=== PATIENT | female | born 1970 | race Caucasian/White ===

== ENCOUNTER 2020-03-11 09:04 | Outpatient (REF) | payer OTHER, SELFPAY | END 2020-03-11 09:05 | disposition home or self-care (01) | LOC: HO.WFDLDS 09:04 | PROVIDERS: Visit Provider Family Medicine | DX: Z13.89 Encounter for screening for other disorder (principal) ==

== ENCOUNTER 2020-03-25 11:16 | Outpatient (REF) | payer OTHER, SELFPAY ==
[2020-03-25 12:27] LABS: Alanine Aminotransferase 187 U/L (0-31); Albumin Level 4.3 g/dL (3.5-5.0); Alkaline Phosphatase 105 U/L (39-117); Aspartate Amino Transferase 94 U/L (5-31); Bilirubin Total 0.6 mg/dL (0.0-1.0); Blood Urea Nitrogen 12 mg/dL (9-16); Calcium 9.2 mg/dL (8.4-10.2); Cholesterol 244 mg/dL; Estimated Glomerular Filt Rate > 60; Glucose Fasting 96 mg/dL (60-99); HDL Cholesterol 81 mg/dL; LDL Cholesterol Calculated 150 mg/dl; Total Protein 6.6 g/dL (6.5-8.0); Triglycerides 69 mg/dL
[2020-03-25 12:36] LABS: Anion Gap 11 (12-20); Carbon Dioxide 29 mmol/L (22-29); Chloride 103 mmol/L (96-108); Potassium 4.9 mmol/l (3.3-5.1); Sodium 138 mmol/L (135-145)
[2020-03-28 19:13] LABS: Homocysteine 8.9 umol/L (<10.4)
== END 2020-03-25 11:17 | disposition home or self-care (01) ==
LOC: HO.LAB 11:16
PROVIDERS: PCP Family Medicine; Visit Provider Family Medicine
DX: F41.1 Generalized anxiety disorder (principal); I10 Essential (primary) hypertension; Z00.00 Encounter for general adult medical examination without abnormal findings
CPT/HCPCS: 80053; 80061; 83090; 84443

== ENCOUNTER 2020-03-31 14:08 | Outpatient (REF) | payer OTHER, SELFPAY ==
[2020-03-31 14:49] LABS: Microalbumin Urine < 5.0 mg/L
== END 2020-03-31 14:09 | disposition home or self-care (01) ==
LOC: HO.LNP 14:08
PROVIDERS: Visit Provider Family Medicine
DX: I10 Essential (primary) hypertension (principal)
CPT/HCPCS: 82043

== ENCOUNTER 2020-05-24 09:18 | Outpatient (REF) | payer OTHER, SELFPAY ==
--- NOTE | 2020-05-24 09:34 | US_ITS ---
EXAMINATION: US ABDOMEN WITH LIVER ELASTOGRAPHY CLINICAL INFORMATION: Elevation of liver transaminase. COMPARISON: None TECHNIQUE: Limited imaging through the right upper quadrant was performed. FINDINGS: The pancreas is homogeneous in echotexture and is normal size and echo pattern. The liver is normal size, contour and echogenicity. There are multiple hyperechoic lesions consistent with hemangiomas. 1. Left lesion measures 0.93 x 0.90 by x 1.0 cm. 2. Left hepatic lesion measures 0.40 x 0.34 x 0.47 cm. 3. Left hepatic lobe lesion measures 2.2 x 1.7 x 1.9 cm. 4. A right hepatic lobe lesion measures 0.75 x 0.55 x 0.60 cm. No intrahepatic ductal dilatation seen. On Elastography Median value is 3.36 m/s. IQR/median measures 0.57. CBD measures 0.41 cm and is borderline normal. There are multiple echogenic gallstones without wall thickening or pericholecystic fluid collection. Gallbladder wall thickness is 0.20 cm. The right kidney measures 10.0 cm. There is normal cortical thickness. No echogenic stones, cysts, or hydronephrosis. US/US abdomen douglass w elastography IMPRESSION: Multiple hepatic hemangiomas as described above. No intrahepatic ductal dilatation.
[2020-05-24 11:25] LABS: Alanine Aminotransferase 31 U/L (0-31); Albumin Level 4.3 g/dL (3.5-5.0); Alkaline Phosphatase 69 U/L (39-117); Anion Gap 11 (12-20); Aspartate Amino Transferase 24 U/L (5-31); Bilirubin Total 0.5 mg/dL (0.0-1.0); Blood Urea Nitrogen 15 mg/dL (9-16); Calcium 9.4 mg/dL (8.4-10.2); Carbon Dioxide 29 mmol/L (22-29); Chloride 106 mmol/L (96-108); Estimated Glomerular Filt Rate > 60; Glucose Random 97 mg/dL (60-115); Potassium 5.2 mmol/l (3.3-5.1); Sodium 141 mmol/L (135-145); Total Protein 6.6 g/dL (6.5-8.0)
== END 2020-05-24 09:19 | disposition home or self-care (01) ==
LOC: HO.US 09:18
PROVIDERS: PCP Family Medicine; Visit Provider Family Medicine
DX: R74.01 Elevation of levels of liver transaminase levels (principal)
CPT/HCPCS: 36415; 76705; 76981; 80053

== ENCOUNTER 2021-04-18 10:16 | Outpatient (REF) | payer OTHER, SELFPAY ==
[2021-04-18 12:14] LABS: Alanine Aminotransferase 68 U/L (0-31); Albumin Level 4.3 g/dL (3.5-5.0); Alkaline Phosphatase 100 U/L (39-117); Anion Gap 12 (12-20); Aspartate Amino Transferase 50 U/L (5-31); Bilirubin Total 0.6 mg/dL (0.0-1.0); Blood Urea Nitrogen 11 mg/dL (9-16); Calcium 9.7 mg/dL (8.4-10.2); Carbon Dioxide 28 mmol/L (22-29); Chloride 104 mmol/L (96-108); Cholesterol 262 mg/dL; Estimated Glomerular Filt Rate > 60; Glucose Fasting 98 mg/dL (60-99); HDL Cholesterol 85 mg/dL; LDL Cholesterol Calculated 165 mg/dl; Potassium 4.7 mmol/L (3.3-5.1); Sodium 139 mmol/L (135-145); Total Protein 6.8 g/dL (6.5-8.0); Triglycerides 60 mg/dL
[2021-04-18 12:35] LABS: TSH reflex Free T4 2.22 uIU/mL (0.32-4.0)
[2021-04-20 06:26] LABS: LDL Cholesterol Direct 150 mg/dL (<100)
== END 2021-04-18 10:17 | disposition home or self-care (01) ==
LOC: HO.WFDLDS 10:16
PROVIDERS: Visit Provider Family Medicine
DX: Z00.00 Encounter for general adult medical examination without abnormal findings (principal); E78.00 Pure hypercholesterolemia, unspecified; R74.01 Elevation of levels of liver transaminase levels
CPT/HCPCS: 36415; 80053; 80061; 83721; 84443

== ENCOUNTER 2021-07-31 12:31 | Outpatient (REF) | payer OTHER, SELFPAY ==
[2021-07-31 14:29] LABS: Alanine Aminotransferase 41 U/L (0-31); Albumin Level 4.2 g/dL (3.5-5.0); Alkaline Phosphatase 86 U/L (39-117); Anion Gap 12 (12-20); Aspartate Amino Transferase 26 U/L (5-31); Bilirubin Direct < 0.2 mg/dL (0.0-0.5); Bilirubin Total 0.5 mg/dL (0.0-1.0); Blood Urea Nitrogen 14 mg/dL (9-16); Carbon Dioxide 29 mmol/L (22-29); Chloride 101 mmol/L (96-108); Cholesterol 241 mg/dL; Estimated Glomerular Filt Rate > 60; Glucose Random 87 mg/dL (60-115); HDL Cholesterol 80 mg/dL; LDL Cholesterol Calculated 146 mg/dl; Potassium 4.9 mmol/L (3.3-5.1); Sodium 137 mmol/L (135-145); Total Protein 6.6 g/dL (6.5-8.0); Triglycerides 76 mg/dL
[2021-07-31 14:36] LABS: TSH reflex Free T4 2.87 uIU/mL (0.32-4.0)
== END 2021-07-31 12:32 | disposition home or self-care (01) ==
LOC: HO.LAB 12:31
PROVIDERS: PCP Family Medicine; Visit Provider Family Medicine
DX: Z00.00 Encounter for general adult medical examination without abnormal findings (principal); I10 Essential (primary) hypertension; D18.03 Hemangioma of intra-abdominal structures; R74.8 Abnormal levels of other serum enzymes
CPT/HCPCS: 36415; 80053; 80061; 82248; 84443

== ENCOUNTER 2021-08-15 11:05 | Outpatient (REF) | payer OTHER, SELFPAY ==
[2021-08-15 13:40] LABS: Rheumatoid Factor < 15.0 IU/mL (<15.0)
[2021-08-15 14:16] LABS: Erythrocyte Sedimentation Rate 5 MM/HR (0-20)
[2021-08-18 11:32] LABS: CRP High Sensitivity 1.3 mg/L
[2021-08-20 11:53] LABS: ANA Titer 2 1:40 titer; Anti Nuclear Antibody Pattern Nuclear, Nucleolar; Anti Nuclear Antibody Screen POSITIVE (NEGATIVE)
== END 2021-08-15 11:06 | disposition home or self-care (01) ==
LOC: HO.WFDLDS 11:05
PROVIDERS: Visit Provider Family Medicine
DX: M25.50 Pain in unspecified joint (principal)
CPT/HCPCS: 36415; 85652; 86038; 86039; 86141; 86431

== ENCOUNTER 2022-06-05 11:05 | Outpatient (REF) | payer OTHER, SELFPAY ==
[2022-06-05 14:23] LABS: Basophils Absolute Auto 0.1 X10*3/uL (0.0-0.2); Basophils Percent Auto 1.1 % (0-2); Eosinophils Absolute Auto 0.3 X10*3/uL (0.0-0.4); Eosinophils Percent Auto 5.9 % (0-4); Hematocrit 41.1 % (37.0-47.0); Hemoglobin 13.7 g/dl (12.0-16.0); Imm Gran Abs Auto 0.01 X10*3/uL (0.00-0.03); Imm Gran Pct Auto 0.2 % (0.0-0.4); Lymphocytes Absolute Auto 1.7 X10*3/uL (1.2-4.9); Lymphocytes Percent Auto 32.3 % (20-40); MANUAL DIFF FLAG NO; Mean Corpuscular HGB Conc 33.3 g/dl (31.0-35.0); Mean Corpuscular Volume 89.9 fL (80.0-98.0); Mean Platelet Volume 11.6 fL (9.4-12.3); Monocytes Absolute Auto 0.4 X10*3/uL (0.1-1.2); Monocytes Percent Auto 6.6 % (2-11); Neutrophils Absolute Auto 2.9 x10*3/uL (2.0-8.3); Neutrophils Percent Auto 53.9 % (45-73); Platelet Count 288 X10*3/uL (160-400); Red Blood Count 4.57 X10*6/uL (4.20-5.50); Red Cell Distribution Width 12.3 % (11.0-16.0); White Blood Count 5.3 X10*3/uL (4.8-10.8)
[2022-06-05 15:12] LABS: Alanine Aminotransferase 115 U/L (0-31); Albumin Level 4.4 g/dL (3.5-5.0); Alkaline Phosphatase 130 U/L (39-117); Anion Gap 14 (12-20); Aspartate Amino Transferase 60 U/L (5-31); Bilirubin Total 0.6 mg/dL (0.0-1.0); Blood Urea Nitrogen 12 mg/dL (9-16); Calcium 9.8 mg/dL (8.4-10.2); Carbon Dioxide 28 mmol/L (22-29); Chloride 105 mmol/L (96-108); Cholesterol 244 mg/dL; Estimated Glomerular Filt Rate > 60; Glucose Fasting 103 mg/dL (60-99); HDL Cholesterol 79 mg/dL; LDL Cholesterol Calculated 144 mg/dl; Potassium 4.8 mmol/L (3.3-5.1); Sodium 142 mmol/L (135-145); Total Protein 6.8 g/dL (6.5-8.0); Triglycerides 106 mg/dL
[2022-06-05 15:32] LABS: TSH reflex Free T4 1.82 uIU/mL (0.32-4.0)
== END 2022-06-05 11:06 | disposition home or self-care (01) ==
LOC: HO.WFDLDS 11:05
PROVIDERS: Visit Provider Family Medicine
DX: Z00.00 Encounter for general adult medical examination without abnormal findings (principal)
CPT/HCPCS: 36415; 80053; 80061; 84443; 85025

== ENCOUNTER 2022-10-23 11:10 | Outpatient (REF) | payer OTHER, SELFPAY ==
[2022-10-23 14:36] LABS: Alanine Aminotransferase 46 U/L (0-31); Albumin Level 4.4 g/dL (3.5-5.0); Alkaline Phosphatase 105 U/L (39-117); Anion Gap 13 (12-20); Aspartate Amino Transferase 51 U/L (5-31); Bilirubin Total 0.6 mg/dL (0.0-1.0); Blood Urea Nitrogen 19 mg/dL (9-16); Calcium 10.1 mg/dL (8.4-10.2); Carbon Dioxide 28 mmol/L (22-29); Chloride 104 mmol/L (96-108); Estimated Glomerular Filt Rate > 60; Glucose Random 92 mg/dL (60-115); Potassium 4.5 mmol/L (3.3-5.1); Sodium 140 mmol/L (135-145); Total Protein 7.2 g/dL (6.5-8.0)
== END 2022-10-23 11:11 | disposition home or self-care (01) ==
LOC: HO.WFDLDS 11:10
PROVIDERS: Visit Provider Family Medicine
DX: R74.8 Abnormal levels of other serum enzymes (principal)
CPT/HCPCS: 36415; 80053

== ENCOUNTER 2023-01-30 08:10 | Outpatient (AMB) | payer OTHER, SELFPAY ==
--- NOTE | 2023-01-30 08:19 | A.OFFPC_ITS ---
Vital Signs 01/30/23 08:26 Height 5 ft 4 in BMI Reason not done Patient refused/unable BP 122/62 Blood Pressure Location Rt brachial Position Sitting Respiration 14 Pulse 63 Pulse Source Pulse Oximeter Temp 97.8 F Temp Source Temporal Artery Scan Pulse Oximetry (%) 99 Oxygen Delivery Method Room Air Intake Visit Reasons: f/u hypertension and chronic conditions Intake Note: Patient reports she is here for a follow up and share she has no concerns. 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 Accompanied by: Self / Same As Patient Allergies penicillin V Allergy (Unknown, Verified 01/30/23 08:27) Swelling difficulty breathing Sulfa (Sulfonamide Antibiotics) Allergy (Unknown, Verified 01/30/23 08:27) Rash itchininess Medication List - Last Reconciled 01/30/23 by Zia Serrano MD diclofenac sodium 1% 4 grams topical QID 30 days gabapentin 300 mg PO BID 30 days ibuprofen 600 mg (30 mL) PO Q8H 30 days lidocaine 5% 1 ea topical BID 30 days lisinopril 10 mg PO DAILY 90 days lorazepam 0.5 mg PO DAILY PRN 1 month metoprolol tartrate 25 mg PO BID 90 days naloxone 4 mg/actuation (Narcan) 4 mg intranasal Q2M PRN 30 days tramadol 2 in the am,1 in the pm, 2 in evening as needed; 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 Blood pressure today 122/62. She is on lisinopril 10mg and metoprolol 25mg b.i.d. She notes she had food poisoning last night after eating sushi. [facility] Surgical History History of arthroplasty of left shoulder Family History Other Substance use disorder Social History Housing: House Alcohol intake: never Patient Tobacco Use Status: Former Tobacco user Tobacco use type: Cigarette e-Cigarette/Vaping Use: Never Used Second Hand Smoke Exposure: No service: No Current occupational status: employed Current occupation: [employer] job titles Current occupational exposures/hazards: No Cognitive needs: No Hearing needs: No Vision needs: Yes (Glasses) Questionnaire Thrive Questionnaire Date Thrive assessed: 04/19/22 DEBORAH-7 AMB Questionnaire DEBORAH-7 Date DEBORAH - 7 assessed: 09/26/21 Source: Developed by Drs. Marcos Leyva, Shefali Storm, Carmine Contreras and colleagues, with an educational geronimo from [employer]. Review of Systems Const Denies chills, Denies fatigue, Denies fever(s), Denies headache(s) and Denies weakness ENT Denies dizziness and Denies headache(s) Card Denies chest pain, Denies lightheadedness, Denies dyspnea and Denies other (Palpitations) Resp Denies cough, Denies dyspnea, Denies wheezing and Denies other ( shortness of breath) Musc Denies numbness and Denies tingling Neuro Denies dizziness, Denies headache(s), Denies numbness, Denies tingling, Denies paresthesias and Denies weakness Psych Denies anxiety and Denies depression Endo Denies fatigue Aller/Immun Denies wheezing Physical exam (Primary Care) Vital Signs: Last Vital Signs Temp 97.8 F 01/30/23 08:26 Pulse 63 01/30/23 08:26 Resp 14 01/30/23 08:26 BP 122/62 01/30/23 08:26 Pulse Ox 99 01/30/23 08:26 Oxygen Delivery Method Room Air 01/30/23 08:26 Tobacco/Smoking Status: Tobacco use Status Tobacco use date assessed 06/18/22 01/30/23 08:21 Patient Tobacco Use Status Former Tobacco user 01/30/23 08:21 Tobacco use type Cigarette 01/30/23 08:21 e-Cigarette/Vaping Use Never Used 01/30/23 08:21 Thrive Assessment: Date of Thrive Assessment Date Thrive assessed 04/19/22 01/30/23 08:21 Const General: no acute distress and well developed Nutritional Appearance: well nourished Orientation/consciousness: patient oriented x3 HENMT Head: Yes normocephalic and Yes atraumatic Eyes General: appearance normal, both eyes and all related structures Pupils: Equal, round and reactive pupils present EOM: EOMs intact bilaterally Resp Effort & Inspection: normal respiratory effort Auscultation: clear to auscultation bilaterally Cardio Rate: regular rate Rhythm: regular rhythm Heart sounds: S1 normal heart sound present, S2 normal heart sound present, no gallops, no murmurs and no rubs Neuro General: patient oriented x3 and gait normal Cranial nerves: Yes Equal, round and reactive pupils present Psych Affect: normal affect Assessment and Plan Assessment & Plan (1) Essential hypertension: Code(s): I10 - Essential (primary) hypertension Plan: Blood pressure is controlled. Goal is Less than 140/90 Continue current medication regimen (2) Gastroenteritis: Code(s): K52.9 - Noninfective gastroenteritis and colitis, unspecified Plan: Likely gastroenteritis or possible food poisoning Advised clear liquid diet for today and then gradually advance diet as tolerated tomorrow. Avoid dairy and hard to digest foods until situation is resolved Hydrate well Orders: Orders Complete Blood Count Auto Diff Today Z00.00 - Encounter for general adult medical examination without abnormal findings Lipid Panel Today Z00.00 - Encounter for general adult medical examination without abnormal findings TSH reflex Free T4 Today Z00.00 - Encounter for general adult medical examination without abnormal findings UA and rflx microscopic Today Z00.00 - Encounter for general adult medical examination without abnormal findings Comprehensive [place]. Panel Fast Today Z00.00 - Encounter for general adult medical examination without abnormal findings Microalbumin, Random (w Creat) Today I10 - Essential (primary) hypertension Erythrocyte Sedimentation Rate Today M25.50 - Pain in unspecified joint Coding Level of Care Code Est Pt Level 3 (76823) Diagnoses Essential hypertension I10 Gastroenteritis K52.9
[2023-01-30 08:26] VITALS: BP 122/62; PULSE 63; RESP 14; TEMP 36.6; O2SAT 99
== END 2023-01-30 09:09 | disposition home or self-care (01) ==
PROVIDERS: PCP Family Medicine; Visit Provider Family Medicine
DX: I10 Essential (primary) hypertension (principal); K52.9 Noninfective gastroenteritis and colitis, unspecified
CPT/HCPCS: 99213

== ENCOUNTER 2023-06-05 13:48 | Outpatient (AMB) | payer OTHER, SELFPAY ==
[2023-06-05 13:52] VITALS: BP 121/74; PULSE 53; O2SAT 99
--- NOTE | 2023-06-05 13:52 | A.OFFPC_ITS ---
Vital Signs 06/05/23 13:52 Height 5 ft 4 in BMI Reason not done Patient refused/unable BP 121/74 Blood Pressure Location Lt brachial Pulse 53 Pulse Source Pulse Oximeter Pulse Oximetry (%) 99 Oxygen Delivery Method Room Air Intake Visit Reasons: CPE Intake Note: Patient is here for her physical. Allergies penicillin V Allergy (Unknown, Verified 06/05/23 13:55) Swelling difficulty breathing Sulfa (Sulfonamide Antibiotics) Allergy (Unknown, Verified 06/05/23 13:55) Rash itchininess Tobacco use date assessed: 06/18/22 HPI CPE HPI Details 52 y/o male presents for a CPE with f/u labs and health maintenance No recent labs to review. Blood pressure today 121/74. She is on metoprolol 25mg b.i.d, lisinopril 10mg daily. Pt reports palpitations. She notes episodes twice every 2 months. Pt reports worsening pain of her hips and would like to increase her gabapentin. 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 1. Little interest or pleasure in doing things: not at all 2. Feeling down, depressed, or hopeless: not at all 3. Trouble falling or staying asleep, or sleeping too much: not at all 4. Feeling tired or having little energy: not at all 5. Poor appetite or overeating: not at all 6. Feeling bad about yourself - or that you are a failure or have let yourself or your family down: not at all 7. Trouble concentrating on things, such as reading the newspaper or watching television: not at all 8. Moving or speaking so slowly that other people could have noticed. Or the opposite - being so fidgety or restless that you have been moving around a lot more than usual: not at all 9. Thoughts that you would be better off or of hurting yourself in some way: not at all Total score: 0 Depression Screening Interpretation: Negative Depression Screening Done: Yes Source: Developed by Drs. Marcos Leyva, Shefali Storm, Carmine Contreras and colleagues, with an educational geronimo from [employer]. Thrive Questionnaire Date Thrive assessed: 04/19/22 I am a: Patient What is your living situation today?: I have a steady place to live Within the past 12 months, did the food you bought not last and you didn't have the money to get more?: Never true Within the past 12 months, did you worry whether your food would run out before you got money to buy more?: Never true Do you have trouble paying for medicines?: No Do you have trouble getting transportation to medical appointments?: No Do you have trouble paying your heating and electricity bill?: No Do you have trouble taking care of your child, family member or friend?: No Do you have trouble with day-to-day activities such as bathing, preparing meals, shopping, managing finances, etc.?: No Are you currently unemployed and looking for a job?: No Are you interested in more education?: Yes THRIVE Score: 0 AUDIT C Alcohol Use Questionnaire (AUDIT-C) 1. How often do you have a drink containing alcohol?: Never 3. How often do you have six or more drinks on one occasion?: Never Total Score: 0 DEBORAH-7 AMB Questionnaire DEBORAH-7 Date DEBORAH - 7 assessed: 06/05/23 Feeling nervous, anxious, or on edge: 0 = Not at all Not being able to stop or control worryin = Not at all Worrying too much about different things: 0 = Not at all Trouble relaxin = Not at all Being so restless that it is hard to sit still: 0 = Not at all Becoming easily annoyed or irritable: 0 = Not at all Feeling afraid as if something awful might happen: 0 = Not at all Total DEBORAH-7 score (0-4 normal; 5-9 mild; 10-14 moderate; 15-21 severe): 0 Source: Developed by Drs. Marcos Leyva, Shefali Storm, Carmine Contreras and colleagues, with an educational geronimo from [employer]. Review of Systems Const Denies chills, Denies fatigue, Denies fever(s), Denies headache(s) and Denies weakness Eyes Denies change in vision ENT Denies dizziness, Denies headache(s), Denies hearing loss, Denies nasal congestion, Denies sinus pain, Denies sinus pressure and Denies sore throat Card Denies chest pain, Denies lightheadedness, Denies dyspnea and Denies other (palpitations) Resp Denies cough, Denies dyspnea and Denies wheezing GI Denies abdominal pain, Denies melena, Denies hematochezia, Denies change in bowel habits, Denies dyspepsia and Denies nausea Denies hematuria and Denies dysuria Musc Denies abnormal gait, Denies myalgias, Denies arthralgias, Denies numbness and Denies tingling Skin/Breast Denies rash, Denies unusual bruising and Denies wounds Neuro Denies abnormal gait, Denies dizziness, Denies headache(s), Denies memory loss, Denies numbness, Denies Sensory deficit (Neuro), Denies tingling and Denies weakness Psych Denies anxiety, Denies depression and Denies memory loss Endo Denies cold intolerance, Denies fatigue, Denies heat intolerance, Denies polydipsia and Denies polyuria Cedrick/Lymph Denies easy bleeding and Denies easy bruising Aller/Immun Denies wheezing Physical exam (Primary Care) Vital Signs: Last Vital Signs Pulse 53 06/05/23 13:52 BP 121/74 06/05/23 13:52 Pulse Ox 99 06/05/23 13:52 Oxygen Delivery Method Room Air 06/05/23 13:52 Tobacco/Smoking Status: Tobacco use Status Tobacco use date assessed 06/18/22 06/05/23 14:02 Patient Tobacco Use Status Former Tobacco user 06/05/23 14:02 Tobacco use type Cigarette 06/05/23 14:02 e-Cigarette/Vaping Use Never Used 06/05/23 14:02 PHQ-9: PHQ-9 Score PHQ-9: Total score 0 06/05/23 14:13 Depression Screening Interpretation: Negative Thrive Assessment: Date of Thrive Assessment Date Thrive assessed 04/19/22 06/05/23 14:02 Const General: no acute distress, well developed, alert and awake Nutritional Appearance: well nourished Orientation/consciousness: patient oriented x3 HENMT Head: Yes normocephalic and Yes atraumatic Ears: hearing grossly normal bilaterally and TM's normal bilaterally General nose exam: Normal external nose present and Normal nares present Mouth: Normal oral and palatal mucosa present and moist mucous membranes Teeth and gingiva: dentition normal Throat: Yes posterior oropharynx normal Eyes General: appearance normal, both eyes and all related structures Pupils: Equal, round and reactive pupils present and Pupil accommodation reflex normal EOM: EOMs intact bilaterally Neck Neck: Yes normal visual inspection, Yes no lymphadenopathy and Yes trachea midline Thyroid: Thyroid normal Carotids: no bruits Lymphatic: no lymphadenopathy noted Chest Chest palpation & inspection: normal inspection of the chest Resp Effort & Inspection: normal respiratory effort Auscultation: clear to auscultation bilaterally Cardio Rate: regular rate Rhythm: regular rhythm Heart sounds: S1 normal heart sound present, S2 normal heart sound present, no gallops, no murmurs and no rubs Bruits: no abdominal aortic bruits and no carotid bruits GI Palpation (GI): No Abdominal aortic bruit present, Soft to palpation, nontender, No hepatosplenomegaly present and No Rebound tenderness present Auscultation: normal bowel sounds General: Yes no CVA tenderness Back/Spine/Pelvis Back: no CVA tenderness Cervical Spine: cervical ROM normal and No Cervical spine tenderness Thoracic/Lumbar Spine: thoraco-lumbar ROM normal, No pain with thoraco-lumbar ROM, No thoracic spinal tenderness and No lumbar spinal tenderness Skin Lesions: no lesions Rashes: no rashes Trauma: no lacerations or abrasions Wounds: no wounds Nails: normal Neuro General: patient oriented x3 Cranial nerves: Yes Equal, round and reactive pupils present Cognition (Neuro): normal cognition Gait exam (Neuro): Normal gait present Motor exam (neuro): 5/5 motor strength present throughout Sensory Exam: No Sensory deficit (Neuro) Deep tendon reflexes (DTR's): Right patellar reflex intensity grade: 2+ and Left patellar reflex intensity grade: 2+ Extrem General: Yes normal to inspection and No edema Psych Appearance: grossly normal Affect: normal affect Attitude: cooperative Thought process: Normal thought process present Assessment and Plan Assessment & Plan (1) Annual physical exam: Code(s): Z00.00 - Encounter for general adult medical examination without abnormal findings Plan: 52-year-old?female?presents?for?complete?physical?exam Encouraged?healthy?diet?with?active?lifestyle?and?plenty?of?exercise?as?tolerate d (2) Essential hypertension: Code(s): I10 - Essential (primary) hypertension Plan: Blood?pressure?is?controlled.??Goal?is?less?than?140/90 Continue?current?medications (3) Palpitations: Code(s): R00.2 - Palpitations Plan: Occasional/intermittent?palpitations No?chest?pain,?shortness?for?breath?or?dizziness. EKG shows?sinus?rhythm?with?PVCs.??Normal?axis,?no?hypertrophy,?no?ST-T-wave?changes Will?check?Holter?monitor?test (4) Polyarthralgia: Code(s): M25.50 - Pain in unspecified joint Plan: Fairly?stable?on?current?medication?regimen?but?notes?some?worsening?pain?in?her ?hips?and?would?like?to?increase?gabapentin Will?increase?gabapentin?from?300?mg?b.i.d.?to?300?mg?in?the?daytime?and?600?mg? at?bedtime (5) Screening for colon cancer: Code(s): Z12.11 - Encounter for screening for malignant neoplasm of colon Plan: Patient?agrees?to?Cologuard?test (6) Screening for cervical cancer: Code(s): Z12.4 - Encounter for screening for malignant neoplasm of cervix Plan: Followed?by?Avril?Rupinder She?will?follow-up?with?her?hardness inspector?as?recommended (7) Breast cancer screening by mammogram: Code(s): Z12.31 - Encounter for screening mammogram for malignant neoplasm of breast Plan: Most?recent?mammogram?showed?no?evidence?of?malignancy Up-to-date Continue?annual?screen Orders: Orders AMB EKG-In Office Today R00.2 - Palpitations ECG holter monitor 48 hour Today R00.2 - Palpitations Referrals Cologuard Test Z12.11 - Encounter for screening for malignant neoplasm of colon, Z12.12 - Encounter for screening for malignant neoplasm of rectum Coding Level of Care Code Est Pt Level 3 (40849) Est Pt Prev Care 40-64y(96029) Diagnoses Annual physical exam Z00.00 Essential hypertension I10 Palpitations R00.2 Polyarthralgia M25.50 Screening for colon cancer Z12.11 Screening for cervical cancer Z12.4 Breast cancer screening by mammogram Z12.31
== END 2023-06-05 15:13 | disposition home or self-care (01) ==
PROVIDERS: PCP Family Medicine; Visit Provider Family Medicine
DX: Z00.00 Encounter for general adult medical examination without abnormal findings (principal); I10 Essential (primary) hypertension; R00.2 Palpitations; M25.50 Pain in unspecified joint; Z12.11 Encounter for screening for malignant neoplasm of colon; Z12.4 Encounter for screening for malignant neoplasm of cervix; Z12.31 Encounter for screening mammogram for malignant neoplasm of breast
CPT/HCPCS: 93000; 99213; 99396

== ENCOUNTER → 2023-06-18 09:14 | Outpatient (REF) | payer OTHER, SELFPAY ==
--- NOTE | 2023-06-18 09:19 | HM_ITS ---
* Total monitoring time 2 days. * Underlying rhythm is sinus with an average ventricular rate of 65/Min. Range 48 to 120/Min. * Frequent ventricular ectopy with a burden of 12%. Occasional bigeminy and trigeminy. No significant runs. 1 morphology. * No significant pauses or AV blocks. * Flutter in patient diary correlates with PVCs. MTDD
== END ==
LOC: HO.CARD 09:14
PROVIDERS: PCP Family Medicine; Visit Provider Family Medicine
DX: R00.2 Palpitations (principal)
CPT/HCPCS: 93225

== ENCOUNTER → 2023-06-18 09:19 | Outpatient (BNV) | payer OTHER, SELFPAY | PROVIDERS: PCP Family Medicine; Visit Provider Internal Medicine | DX: I49.3 Ventricular premature depolarization (principal) | CPT/HCPCS: 93227 ==

== ENCOUNTER 2023-07-05 11:03 | Outpatient (AMB) | payer OTHER, SELFPAY ==
--- NOTE | 2023-07-05 11:07 | A.OFFPC_ITS ---
Vital Signs 07/05/23 11:09 Height 5 ft 4 in BMI Reason not done Patient refused/unable BP 121/70 Blood Pressure Location Lt brachial Pulse 65 Pulse Source Pulse Oximeter Pulse Oximetry (%) 99 Oxygen Delivery Method Room Air Intake Visit Reasons: f/u palpitations Intake Note: Patient is here to follow up on palpitations. Allergies penicillin V Allergy (Unknown, Verified 07/05/23 11:11) Swelling difficulty breathing Sulfa (Sulfonamide Antibiotics) Allergy (Unknown, Verified 07/05/23 11:11) Rash itchininess Medication List - Last Reconciled 07/05/23 by Zia Serrano MD buspirone 15 mg PO BID 90 days diclofenac sodium 1% 4 grams topical QID 30 days gabapentin 300 mg PO BID 30 days ibuprofen 600 mg (30 mL) PO Q8H 30 days lidocaine 5% 1 ea topical BID 30 days lisinopril 10 mg PO DAILY 90 days lorazepam 0.5 mg PO DAILY PRN 1 month metoprolol tartrate 25 mg PO BID 90 days naloxone 4 mg/actuation (Narcan) 4 mg intranasal Q2M PRN 30 days tramadol 2 in the am,1 in the pm, 2 in evening as needed; 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 Holter monitor 06/18/23. Holter monitor shows: Underlying rhythm is sinus with an average ventricular rate of 65/Min. Range 48 to 120/Min. Frequent ventricular ectopy with a burden of 12%. Occasional bigeminy and trigeminy. No significant runs. 1 morphology. No significant pauses or AV blocks. Flutter in patient diary correlates with PVCs. 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 Marcos Leyva, Shefali Storm, Carmine Contreras and colleagues, with an educational geronimo from [email or web address]. Review of Systems Const Denies chills, Denies fatigue, Denies fever(s), Denies headache(s) and Denies weakness ENT Denies dizziness and Denies headache(s) Card Denies dyspnea Resp Denies cough, Denies dyspnea, Denies wheezing and Denies other (shortness of breath) Musc Denies numbness and Denies tingling Neuro Denies dizziness, Denies headache(s), Denies numbness, Denies tingling and Denies weakness Psych Denies anxiety and Denies depression Endo Denies fatigue Aller/Immun Denies wheezing Physical exam (Primary Care) Vital Signs: Last Vital Signs Pulse 65 07/05/23 11:09 BP 121/70 07/05/23 11:09 Pulse Ox 99 07/05/23 11:09 Oxygen Delivery Method Room Air 07/05/23 11:09 Tobacco/Smoking Status: Tobacco use Status Tobacco use date assessed 06/18/22 07/05/23 11:17 Patient Tobacco Use Status Former Tobacco user 07/05/23 11:17 Tobacco use type Cigarette 07/05/23 11:17 e-Cigarette/Vaping Use Never Used 07/05/23 11:17 Thrive Assessment: Date of Thrive Assessment Date Thrive assessed 04/19/22 07/05/23 11:17 Const General: well developed; No acute distress Nutritional Appearance: well nourished Orientation/consciousness: patient oriented x3 HENMT Head: Yes normocephalic and Yes atraumatic Eyes General: appearance normal, both eyes and all related structures Pupils: Equal, round and reactive pupils present EOM: EOMs intact bilaterally Resp Effort & Inspection: normal respiratory effort Neuro General: patient oriented x3 and gait normal Cranial nerves: Yes Equal, round and reactive pupils present Psych Affect: normal affect Assessment and Plan Assessment & Plan (1) Palpitations: Code(s): R00.2 - Palpitations Plan: Frequent?palpitations?and?Holter?monitor?shows?PVCs?which?correlate?with?her?sym ptoms. Referred?to?cardiology She?is?on?metoprolol?twice?a?day?and?will?continue?this.??She?can?try?an?additio nal?half?tablet?if?symptoms?are?severe. Avoid?caffeine Get?plenty?of?sleep?and?hydrate?well (2) Fibromyalgia: Code(s): M79.7 - Fibromyalgia Plan: Had?discussed?increasing?her?gabapentin?at?bedtime. 300?mg?dose?at?bedtime?is?increased?to?600?mg?and?she?will?continue?a?300?mg?dos e?in?the?daytime Orders: Referrals Cardiology Referral I49.3 - Ventricular premature depolarization, R00.2 - Palpitations Medications: Changed From gabapentin 300 mg PO BID 30 days 60 caps 3RF To gabapentin 300mg (1 tab) in AM and 600mg (2tabs) in PM orally 2 times a day; 90 caps 3RF 30 days Coding Level of Care Code Est Pt Level 3 (13097) Diagnoses Palpitations R00.2 Fibromyalgia M79.7
[2023-07-05 11:09] VITALS: BP 121/70; PULSE 65; O2SAT 99
== END 2023-07-05 11:43 | disposition home or self-care (01) ==
LOC: HO.HMGFM 11:03
PROVIDERS: PCP Family Medicine; Visit Provider Family Medicine
DX: R00.2 Palpitations (principal); M79.7 Fibromyalgia
CPT/HCPCS: 99213

== ENCOUNTER 2023-09-17 09:20 | Outpatient (AMB) | payer OTHER, SELFPAY ==
[2023-09-17 09:22] VITALS: BP 140/80; PULSE 72; BMI 33.1
--- NOTE | 2023-09-17 09:22 | A.OFFVIS_ITS ---
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 Accompanied by: Self / Same As Patient Allergies penicillin V Allergy (Unknown, Verified 07/05/23 11:11) Swelling difficulty breathing Sulfa (Sulfonamide Antibiotics) Allergy (Unknown, Verified 07/05/23 11:11) Rash itchininess Medication List - Last Reconciled 09/17/23 by Ho Bueno MD buspirone 15 mg PO BID 90 days diclofenac sodium 1% 4 grams topical QID 30 days gabapentin 300mg (1 tab) in AM and 600mg (2tabs) in PM orally 2 times a day; 30 days ibuprofen 600 mg (30 mL) PO Q8H 30 days lidocaine 5% 1 ea topical BID 30 days lisinopril 10 mg PO DAILY 90 days lorazepam 0.5 mg PO DAILY PRN 1 month metoprolol tartrate 25 mg PO BID 90 days naloxone 4 mg/actuation (Narcan) 4 mg intranasal Q2M PRN 30 days tramadol 2 in the am,1 in the pm, 2 in evening as needed; ok for 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 She does not feel true palpitations per se but an abnormal sensation in the chest. She has had workup and that shows PVCs. Otherwise, no symptoms like angina or shortness of breath or palpitations or presyncope/syncope. No known coronary disease or cardiomyopathy. No major cardiac issues in the family. 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 Current occupational exposures/hazards: No Cognitive needs: No Hearing needs: No Vision needs: Yes (Glasses) Review of Systems Const Denies chills, Denies fatigue, Denies fever(s), Denies frequent falls, Denies weakness, Denies weight gain and Denies weight loss ENT Denies dizziness Card Denies chest pain, Denies leg edema, Denies lightheadedness, Denies pal pitations, Denies dyspnea, Denies dyspnea on exertion and Denies orthopnea Resp Denies cough, Denies dyspnea and Denies dyspnea on exertion GI Denies bloating and Denies change in bowel habits Musc Denies muscle weakness, Denies numbness and Denies tingling Neuro Denies dizziness, Denies frequent falls, Denies numbness, Denies tingling and Denies weakness Endo Denies fatigue and Denies palpitations Physical Exam Vital Signs: Last Vital Signs Pulse 72 09/17/23 09:22 BP 140/80 H 09/17/23 09:22 BMI result Body Mass Index 33.1 Const General: comfortable and no acute distress Orientation/consciousness: patient oriented x3 HEENT Other: Unremarkable Head: Yes normal to inspection Neck Neck: Yes normal visual inspection Chest Chest palpation & inspection: normal inspection of the chest Resp Auscultation: clear to auscultation bilaterally Cardio Palpation: normal PMI Heart sounds: S1 normal heart sound present, S2 normal heart sound present, no gallops, no murmurs and no rubs GI Palpation (GI): Soft to palpation Back/Spine/Pelvis Other: unremarkable Skin General skin exam: no rashes or lesions noted Neuro General: patient oriented x3 Extrem General: Yes normal to inspection Psych Mental Status: mental status grossly normal Assessment & Plan Assessment & Plan (1) PVCs (premature ventricular contractions): Code(s): I49.3 - Ventricular premature depolarization Category: Medical (2) Essential hypertension: Code(s): I10 - Essential (primary) hypertension Category: Medical (3) Palpitations: Code(s): R00.2 - Palpitations Category: Medical (4) Obesity: Code(s): E66.9 - Obesity, unspecified Category: Medical Plan In the recent EKG, underlying rhythm is sinus at a rate of 68/Min; isolated PVCs; normal GA and corrected QT. In the Holter, underlying rhythm is sinus with an average rate of 65/Min. Frequent PVCs with a burden of 12%. Occasional bigeminy and trigeminy. Overall, her symptoms are likely from PVCs and we discussed this in great detail. Obesity can be a major contributor and losing weight we will certainly help. Discussed today. She will try. Otherwise, screen for occult sleep apnea with a sleep study. Obtain echo for LV function. She is already on some beta-blockers for hypertension then that can be continued. Follow-up after testing. Orders: Orders CA echo transthoracic complete Today I49.3 - Ventricular premature depolarizat ion RT home sleep study Today G47.33 - Obstructive sleep apnea (adult) (pediatric), I49.3 - Ventricular premature depolarization Coding Level of Care Code New Pt Level 4 (18433) Diagnoses PVCs (premature ventricular contractions) I49.3 Essential hypertension I10 Palpitations R00.2 Obesity E66.9
== END 2023-09-17 09:49 | disposition home or self-care (01) ==
PROVIDERS: PCP Family Medicine; Visit Provider Internal Medicine
DX: I49.3 Ventricular premature depolarization (principal); I10 Essential (primary) hypertension; R00.2 Palpitations; E66.9 Obesity, unspecified; Z68.31 Body mass index [BMI] 31.0-31.9, adult
CPT/HCPCS: 99214

== ENCOUNTER → 2023-09-17 09:20 | Outpatient (BNVA) | payer OTHER, SELFPAY | PROVIDERS: PCP Family Medicine; Visit Provider Internal Medicine ==

== ENCOUNTER 2023-10-04 10:34 | Outpatient (AMB) | payer OTHER, SELFPAY ==
[2023-10-04 10:46] VITALS: BP 118/64; PULSE 57; O2SAT 100; BMI 33.2
--- NOTE | 2023-10-04 10:46 | MHC.PC.OV ---
Vital Signs 10/04/23 10:46 Height 5 ft 4 in Weight 193 lb 4 oz BMI 33.2 BP 118/64 Blood Pressure Location Lt brachial Position Sitting Pulse 57 Pulse Source Pulse Oximeter Pulse Oximetry (%) 100 Oxygen Delivery Method Room Air Intake Visit Reasons: f/u hypertension, palpitations, chronic conditions Intake Note: Patient is here to follow up on hypertension and palpitations, and chronic conditions. She needs refills on Tramadol, and would like to talk about Gabapentin. Allergies penicillin V Allergy (Unknown, Verified 10/04/23 10:50) Swelling difficulty breathing Sulfa (Sulfonamide Antibiotics) Allergy (Unknown, Verified 10/04/23 10:50) Rash itchininess Medication List - Last Reconciled 10/04/23 by Zia Serrano MD buspirone 15 mg PO BID 90 days diclofenac sodium 1% 4 grams topical QID 30 days gabapentin 300mg (1 tab) in AM and 600mg (2tabs) in PM orally 2 times a day; 30 days ibuprofen 600 mg (30 mL) PO Q8H 30 days lidocaine 5% 1 ea topical BID 30 days lisinopril 10 mg PO DAILY 90 days lorazepam 0.5 mg PO DAILY PRN 1 month metoprolol tartrate 25 mg PO BID 90 days naloxone 4 mg/actuation (Narcan) 4 mg intranasal Q2M PRN 30 days tramadol 2 in the am,1 in the pm, 2 in evening as needed; ok for pick remover on 09/06/22 28 days Tobacco use date assessed: 10/04/23 Dental Screening Dental Screen Date: 10/04/23 Did you have a dental visit in the last 12 months?: Yes Did you have a dental problem in the last 6 months where you did not have access to dental care?: No Was dental information given to patient?: Patient has dentist HPI f/u hypertension, palpitations, chronic conditions HPI Details 53 y/o female presents to f/u hypertenion, palpitations, chronic conditions. Blood pressure today 118/64. She is on lisinopril 10mg, metoprolol 25mg b.i.d. Has f/u with Cardiology. 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 Marcos Leyva, Shefali Storm, Carmine Contreras and colleagues, with an educational geronimo from [employer]. Review of Systems Const Denies chills, Denies fatigue, Denies fever(s), Denies headache(s) and Denies weakness ENT Denies dizziness and Denies headache(s) Card Denies dyspnea Resp Denies cough, Denies dyspnea, Denies wheezing and Denies other (shortness of breath) Musc Denies numbness and Denies tingling Neuro Denies dizziness, Denies headache(s), Denies numbness, Denies tingling and Denies weakness Psych Denies anxiety and Denies depression Endo Denies fatigue Aller/Immun Denies wheezing Physical exam (Primary Care) Vital Signs: Last Vital Signs Pulse 57 10/04/23 10:46 BP 118/64 10/04/23 10:46 Pulse Ox 100 10/04/23 10:46 Oxygen Delivery Method Room Air 10/04/23 10:46 BMI result Body Mass Index 33.2 Tobacco/Smoking Status: Tobacco use Status Tobacco use date assessed 10/04/23 10/04/23 10:51 Patient Tobacco Use Status Former Tobacco user 10/04/23 10:51 Tobacco use type Cigarette 10/04/23 10:51 e-Cigarette/Vaping Use Never Used 10/04/23 10:51 Thrive Assessment: Date of Thrive Assessment Date Thrive assessed 04/19/22 10/04/23 10:51 Const General: well developed; No acute distress Nutritional Appearance: well nourished Orientation/consciousness: patient oriented x3 HENMT Head: Yes normocephalic and Yes atraumatic Eyes General: appearance normal, both eyes and all related structures Pupils: Equal, round and reactive pupils present EOM: EOMs intact bilaterally Resp Effort & Inspection: normal respiratory effort Neuro General: patient oriented x3 and gait normal Cranial nerves: Yes Equal, round and reactive pupils present Psych Affect: normal affect Assessment and Plan Assessment & Plan (1) Essential hypertension: Code(s): I10 - Essential (primary) hypertension Plan: Blood?pressure?appears?well?controlled.??Goal?is?less?than?140/90 Continue?current?medications (2) Palpitations: Code(s): R00.2 - Palpitations Plan: Fairly?stable?on?metoprolol Was?seen?by??Myles,?cardiology Frequent?PVCs He?has?ordered?an?echocardiogram?and?sleep?study He?also?recommended?weight?loss?and?she?is?working?on?this?though?she?is?somewhat?frustrated (3) PVCs (premature ventricular contractions): Code(s): I49.3 - Ventricular premature depolarization Plan: As?above (4) Obesity: Code(s): E66.9 - Obesity, unspecified Plan: Patient?has?been?working?on?weight?loss?and?is?somewhat?frustrated?about?it.??She?says?she?has?been?working?on?dietary?changes?and?exercising?more. Advised?her?to?try?using?an?tracy?which?will?help?her?monitor?her?intake?and?output Will?follow?at?next?visit Medications: Changed From gabapentin 300mg (1 tab) in AM and 600mg (2tabs) in PM orally 2 times a day; 30 days 90 caps 3RF To gabapentin 600mg (2 tabs) in AM and 600mg (2tabs) in PM orally 2 times a day; 30 days 120 caps 3RF Refilled tramadol 2 in the am,1 in the pm, 2 in evening as needed; ok for pick remover on 09/06/22 28 days 140 tabs 0RF Coding Level of Care Code Est Pt Level 4 (31301) Diagnoses Essential hypertension I10 Palpitations R00.2 PVCs (premature ventricular contractions) I49.3 Obesity E66.9
== END 2023-10-04 11:23 | disposition home or self-care (01) ==
PROVIDERS: PCP Family Medicine; Visit Provider Family Medicine
DX: I10 Essential (primary) hypertension (principal); R00.2 Palpitations; E66.9 Obesity, unspecified; Z68.33 Body mass index [BMI] 33.0-33.9, adult; I49.3 Ventricular premature depolarization
CPT/HCPCS: 99214

== ENCOUNTER → 2023-10-24 12:51 | Outpatient (REF) | payer OTHER, SELFPAY ==
--- NOTE | 2023-10-24 12:54 | CA_ITS ---
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 The calculated ejection fraction is 56% by biplane method. - No obvious valvular pathology seen on this study. Findings Procedure Information Contrast agent, definity, is being given per protocol without apparent complications. Left Ventricle Normal left ventricular cavity size. There is normal left ventricular wall thickness. The left ventricular systolic function is normal. The calculated ejection fraction is 56% by biplane method. There is no evidence of regional wall motion abnormalities. Diastolic function is normal for age. Right Ventricle Normal right ventricular cavity size and systolic function. Atria Both atria are normal in size. Aortic Valve There is a normal trileaflet aortic valve. There is no aortic valve stenosis. There is no aortic valve regurgitation. Mitral Valve There is mild anterior mitral leaflet thickening. There is trace mitral valve regurgitation. There is no mitral valve stenosis. Pulmonic Valve The pulmonic valve is likely normal. Tricuspid Valve Normal tricuspid valve structure. There is mild tricuspid valve regurgitation. There is no evidence of pulmonary hypertension. Great Vessels The asc aorta is normal in size. Venous The inferior vena cava is normal in size and collapses greater than 50% with inspiration. Pericardium/Pleural There is no evidence of pericardial effusion. Prior Study Comparison No prior study available for comparison. Recommendations, Care & Conclusions No obvious valvular pathology seen on this study. Measurements 2D Linear Measurements IVSd: 0.82 0.6-0.9/0.6-1.0 cm LVIDd: 5.62 3.9-5.3/4.2-5.9 cm LVIDd Index: 2.97 2.4-3.2/2.2-3.1 cm/m2 LVIDs: 3.64 2.0-3.6 cm LVPWd: 1.00 0.7-1.1 cm LA Diam: 3.70 2.7-3.8/3.0-4.0 cm LAIDs Index: 1.96 1.5-2.3 cm/m2 LV Mass: 243.35 67-162/88-224 g LV Mass Index: 128.76 43-95/49-115 g/m2 LVOT Diam: 2.10 3.0+(-)1.3 cm 2D Systolic Function EF 4C: 52.90 >55% EF 2C: 60.70 >55% EF BiP: 55.70 >55% Mitral Valve MV Pk E: 0.81 MV PK A: 0.69 MV Decel Time: 151.00 E/A: 1.20 E'Lateral: 7.29 E'Medial: 6.53 E/E' Med: 12.50 E/E' Lat: 11.20 PHT: 44.00 MVA PHT: 5.00 Decel [place]: 5.38 Aortic Valve AoV Pk Salvatore: 1.14 AoV Mn Salvatore: 0.83 AoV VTI: 0.29 AoV Pk Grad: 5.00 Aov Mn Grad: 3.00 ADA Cont.VTI: 2.45 LVOT LVOT Pk Salvatore: 0.84 LVOT Mn Salvatore: 0.62 LVOT VTI: 0.21 LVOT Pk Grad: 3.00 LVOT Mn Grad: 2.00 LVOT Diam: 2.10 LVOT Area: 3.46 Diastolic Function MV Pk E: 0.81 MV Pk A: 0.69 E/A: 1.20 E'Medial: 6.53 E/E' Med: 12.50 E' Laterial: 7.29 E/E' Lat: 11.20 Right Ventricle TAPSE (mm): 23.30 TVS' Salvatore: 11.50 Tricuspid Valve TR Pk Salvatore: 2.76 TR Pk Grad: 30.00 RA Press: 3.00 RVSP: 33.00 Great Vessels Aorta Sinus of Valsalva: 3.10 2.0-3.5 cm Ao Asc: 3.10 2.1-3.4 cm Pulmonary Valve PV Pk Salvatore: 1.18 Peak PV Grad: 6.00 Updated in Other Vendor System with Status of Final Ho Bueno MD electronically signed on 10/26/2023 10:38:45 AM with status of Final
== END ==
LOC: HO.CARD 12:51
PROVIDERS: PCP Family Medicine; Visit Provider Internal Medicine Cardiovascular Disease
DX: I49.3 Ventricular premature depolarization (principal)
CPT/HCPCS: 93306; Q9957

== ENCOUNTER → 2023-10-24 12:54 | Outpatient (BNV) | payer OTHER, SELFPAY | PROVIDERS: PCP Family Medicine; Visit Provider Internal Medicine | DX: I36.1 Nonrheumatic tricuspid (valve) insufficiency (principal) | CPT/HCPCS: 93306 ==

== ENCOUNTER 2023-12-30 10:03 | Outpatient (AMB) | payer OTHER, SELFPAY ==
[2023-12-30 10:06] VITALS: BP 132/82; PULSE 64
--- NOTE | 2023-12-30 10:06 | A.OFFVIS_ITS ---
Vital Signs 12/30/23 10:06 Height 5 ft 4 in BMI Reason not done Patient refused/unable BP 132/82 Blood Pressure Location Lt brachial Position Sitting Pulse 64 Pulse Source Pulse Oximeter Intake Visit Reasons: 3 mth f/up home sleep/ echo Allergies penicillin V Allergy (Unknown, Verified 10/04/23 10:50) Swelling difficulty breathing Sulfa (Sulfonamide Antibiotics) Allergy (Unknown, Verified 10/04/23 10:50) Rash itchininess Medication List - Last Reconciled 12/30/23 by Ho Bueno MD aspirin 81 mg PO DAILY buspirone 15 mg PO BID 90 days cholecalciferol (vitamin D3) 25 mcg PO DAILY diclofenac sodium 1% 4 grams topical QID 30 days gabapentin 600mg (2 tabs) in AM and 600mg (2tabs) in PM orally 2 times a day; 30 days ibuprofen 600 mg (30 mL) PO Q8H 30 days lidocaine 5% 1 ea topical BID 30 days lisinopril 10 mg PO DAILY 90 days lorazepam 0.5 mg PO DAILY PRN 1 month metoprolol tartrate 25 mg PO BID 90 days tramadol 2 in the am,1 in the pm, 2 in evening as needed; 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 Recently seen in consultation regarding palpitations. Underwent workup and that showed PVCs. No other complaints like angina or shortness of breath or in fact anything else. No known coronary disease as well. No major cardiac history in the family. After that, she states she has not had much of symptoms and only rarely. She tried a sleep study but that showed no sleep apnea but frequent snoring. However, patient states she barely slept that night and would like to repeat that. 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 occupational exposures/hazards: No Cognitive needs: No Hearing needs: No Vision needs: Yes (Glasses) Review of Systems Const Denies weakness ENT Denies dizziness Card Denies chest pain, Denies chest pain with activity, Denies syncope, Denies rapid heart rate, Denies pedal edema, Denies edema, Denies leg edema, Denies lightheadedness, Denies palpitations, Denies dyspnea, Denies dyspnea on exertion and Denies orthopnea Resp Denies cough, Denies dyspnea and Denies dyspnea on exertion GI Denies hematochezia and Denies change in stool character Musc Denies abnormal gait, Denies muscle cramps, Denies muscle weakness, Denies numbness, Denies radiating pain into limb and Denies tingling Neuro Denies abnormal gait, Denies dizziness, Denies syncope, Denies numbness, Denies tingling and Denies weakness Endo Denies palpitations Physical Exam Vital Signs: Last Vital Signs Pulse 64 12/30/23 10:06 BP 132/82 12/30/23 10:06 Const General: comfortable and no acute distress Orientation/consciousness: patient oriented x3 HEENT Other: Unremarkable Head: Yes normal to inspection Neck Neck: Yes normal visual inspection Chest Chest palpation & inspection: normal inspection of the chest Resp Auscultation: clear to auscultation bilaterally Cardio Palpation: normal PMI Heart sounds: S1 normal heart sound present, S2 normal heart sound present, no gallops, no murmurs and no rubs GI Palpation (GI): Soft to palpation Back/Spine/Pelvis Other: unremarkable Skin General skin exam: no rashes or lesions noted Neuro General: patient oriented x3 Extrem General: Yes normal to inspection Psych Mental Status: mental status grossly normal Assessment & Plan Assessment & Plan (1) PVCs (premature ventricular contractions): Code(s): I49.3 - Ventricular premature depolarization Category: Medical (2) Essential hypertension: Code(s): I10 - Essential (primary) hypertension Category: Medical (3) Palpitations: Code(s): R00.2 - Palpitations Category: Medical (4) Obesity: Code(s): E66.9 - Obesity, unspecified Category: Medical Plan In the recent EKG, underlying rhythm is sinus at a rate of 68/Min; isolated PVCs; normal MO and corrected QT. In the Holter, underlying rhythm is sinus with an average rate of 65/Min. Frequent PVCs with a burden of 12%. Occasional bigeminy and trigeminy. Echocardiogram with LVEF of 56%; normal diastolic function and otherwise unremarkable. In the home sleep study, reported have no sleep apnea but severe snoring. It was recommended for her to have a in-lab study. Patient however states that she barely slept because of her cat and would like to repeat another home sleep study. Reordered. With regard to the PVCs himself, she states she is feeling well these days and not much of symptoms. Main recommendation is just weight loss. She seems to be on some beta-blockers and that can be continued as she might be on it for other hypertension. Follow-up in 6 months with another Holter. Otherwise, reassurance. Orders: Orders ECG 3 day holter monitor 6 Months I49.3 - Ventricular premature depolarization Coding Level of Care Code Est Pt Level 3 (82275) Diagnoses PVCs (premature ventricular contractions) I49.3 Essential hypertension I10 Palpitations R00.2 Obesity E66.9
== END 2023-12-30 10:30 | disposition home or self-care (01) ==
PROVIDERS: PCP Family Medicine; Visit Provider Internal Medicine
DX: I49.3 Ventricular premature depolarization (principal); I10 Essential (primary) hypertension; R00.2 Palpitations; E66.9 Obesity, unspecified
CPT/HCPCS: 99213

== ENCOUNTER → 2023-12-30 10:03 | Outpatient (BNVA) | payer OTHER, SELFPAY | PROVIDERS: PCP Family Medicine; Visit Provider Internal Medicine ==

== ENCOUNTER 2024-01-01 14:32 | Outpatient (AMB) | payer OTHER, SELFPAY ==
--- NOTE | 2024-01-01 14:38 | MHC.PC.OV ---
Vital Signs 01/01/24 14:41 Height 5 ft 4 in BMI Reason not done Patient refused/unable BP 130/80 Blood Pressure Location Rt brachial Position Sitting Respiration 16 Pulse 73 Pulse Source Pulse Oximeter Temp 97.5 F Temp Source Tympanic Pulse Oximetry (%) 100 Oxygen Delivery Method Room Air Intake Visit Reasons: f/u hypertension, weight Intake Note: follow up on HTN and weight Allergies penicillin V Allergy (Unknown, Verified 01/01/24 14:39) Swelling difficulty breathing Sulfa (Sulfonamide Antibiotics) Allergy (Unknown, Verified 01/01/24 14:39) Rash itchininess Tobacco use date assessed: 10/04/23 Dental Screening Dental Screen Date: 10/04/23 HPI f/u hypertension, weight HPI Details 53 y/o female presents to f/u hypertension and weight. Blood pressure today 130/80. She is on lisinopril 10mg, metoprolol 25mg b.i.d. Had been frustrated about weight loss last office visit. She notes she is interested in Ozempic. Had seen [facility] Par[facility]egal for palpitations - workup negative and they plan to repeat holter in a year. They had recommended a sleep study. Pt reports achilles tendon pain/scrape. HPI Comments History of Present Illness Details Documentation assistance for Zia Serrano MD, was provided by Alcon Madera, Manager Of Software Development on 01/01/2024 at 2:51 PM EST. I, Dr. Serrano, have read, observed, and verified documentation. 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 Marcos Leyva, Shefali Storm, Carmine Contreras and colleagues, with an educational geronimo from [employer]. Review of Systems Const Denies chills, Denies fatigue, Denies fever(s), Denies headache(s) and Denies weakness ENT Denies dizziness and Denies headache(s) Card Denies chest pain, Denies lightheadedness, Denies dyspnea and Denies other (Palpitations) Resp Denies cough, Denies dyspnea, Denies wheezing and Denies other ( shortness of breath) Musc Denies numbness and Denies tingling Neuro Denies dizziness, Denies headache(s), Denies numbness, Denies tingling, Denies paresthesias and Denies weakness Psych Denies anxiety and Denies depression Endo Denies fatigue Aller/Immun Denies wheezing Physical exam (Primary Care) Vital Signs: Last Vital Signs Temp 97.5 F 01/01/24 14:41 Pulse 73 01/01/24 14:41 Resp 16 01/01/24 14:41 BP 130/80 01/01/24 14:41 Pulse Ox 100 01/01/24 14:41 Oxygen Delivery Method Room Air 01/01/24 14:41 Tobacco/Smoking Status: Tobacco use Status Tobacco use date assessed 10/04/23 01/01/24 14:43 Patient Tobacco Use Status Former Tobacco user 01/01/24 14:43 Tobacco use type Cigarette 01/01/24 14:43 e-Cigarette/Vaping Use Never Used 01/01/24 14:43 Thrive Assessment: Date of Thrive Assessment Date Thrive assessed 04/19/22 01/01/24 14:43 Const General: no acute distress and well developed Nutritional Appearance: well nourished Orientation/consciousness: patient oriented x3 HENMT Head: Yes normocephalic and Yes atraumatic Eyes General: appearance normal, both eyes and all related structures Pupils: Equal, round and reactive pupils present EOM: EOMs intact bilaterally Resp Effort & Inspection: normal respiratory effort Auscultation: clear to auscultation bilaterally Cardio Rate: regular rate Rhythm: regular rhythm Heart sounds: S1 normal heart sound present, S2 normal heart sound present, no gallops, no murmurs and no rubs Neuro General: patient oriented x3 and gait normal Cranial nerves: Yes Equal, round and reactive pupils present Psych Affect: normal affect Assessment and Plan Assessment & Plan (1) Essential hypertension: Code(s): I10 - Essential (primary) hypertension Plan: Blood?pressure?is?controlled.??Goal?is?less?than?140/90 Continue?current?medication (2) Obesity: Code(s): E66.9 - Obesity, unspecified Plan: Obesity?with?difficulty?losing?weight Patient?is?rather?frustrated?and?would?like?to?try?a?newer?medication?to?help?with?this. Patient?would?like?to?try?Ozempic?and?I?have?sent?script.??Risks/benefits?were?discussed?patient (3) Fibromyalgia: Code(s): M79.7 - Fibromyalgia Plan: Longstanding?chronic?pain. Well?controlled?with?tramadol Continuing?her?medication (4) Palpitations: Code(s): R00.2 - Palpitations Plan: Palpitations?which?have?improved.??She?is?on?metoprolol. Followed?by?cardiology?who?recommends?she?lose?weight?and?will?follow-up?with?her?next?year. Orders: Orders Comprehensive [place]. Panel Fast Today Z00.00 - Encounter for general adult medical examination without abnormal findings Complete Blood Count Auto Diff Today Z00.00 - Encounter for general adult medical examination without abnormal findings Lipid Panel Today Z00.00 - Encounter for general adult medical examination without abnormal findings UA and rflx microscopic Today Z00.00 - Encounter for general adult medical examination without abnormal findings Microalbumin, Random (w Creat) Today I10 - Essential (primary) hypertension TSH reflex Free T4 Today Z00.00 - Encounter for general adult medical examination without abnormal findings Medications: New semaglutide (Ozempic) for 4 weeks 0.25 mg (0.368 mL) subcut QWEEK 28 days 1.472 mL 2RF E66.9 - Obesity, unspecified Refilled tramadol 2 in the am,1 in the pm, 2 in evening as needed; ok for strip picker on 09/06/22 28 days 140 tabs 0RF Coding Level of Care Code Est Pt Level 4 (11989) Diagnoses Essential hypertension I10 Obesity E66.9 Fibromyalgia M79.7 Palpitations R00.2
[2024-01-01 14:41] VITALS: BP 130/80; PULSE 73; RESP 16; TEMP 36.4; O2SAT 100
== END 2024-01-01 15:09 | disposition home or self-care (01) ==
PROVIDERS: PCP Family Medicine; Visit Provider Family Medicine
DX: I10 Essential (primary) hypertension (principal); E66.9 Obesity, unspecified; M79.7 Fibromyalgia; R00.2 Palpitations
CPT/HCPCS: 99214

== ENCOUNTER → 2024-01-21 11:52 | Outpatient (AMB) | payer OTHER, SELFPAY ==
--- NOTE | 2024-01-21 11:42 | A.OFFPC_ITS ---
Intake Visit Reasons: wygovy questions ok by dr barros Intake Note: Questions about taking Wegovy. Originally precribed Ozempic but insurance didnt appove. Wants to discuss best option for weight loss. Allergies penicillin V Allergy (Unknown, Verified 01/21/24 11:44) Swelling difficulty breathing Sulfa (Sulfonamide Antibiotics) Allergy (Unknown, Verified 01/21/24 11:44) Rash itchininess Tobacco use date assessed: 10/04/23 Dental Screening Dental Screen Date: 10/04/23 HPI wygovy questions ok by dr barros HPI Details 53 y/o female presents today to discuss weight loss meds. Questions about taking Wegovy. Originally prescribed Ozempic but insurance didn't approve. 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 Marcos Leyva, Shefali Storm, Carmine Contreras and colleagues, with an educational geronimo from [employer]. Physical exam (Primary Care) Tobacco/Smoking Status: Tobacco use Status Tobacco use date assessed 10/04/23 01/21/24 11:46 Patient Tobacco Use Status Former Tobacco user 01/21/24 11:46 Tobacco use type Cigarette 01/21/24 11:46 e-Cigarette/Vaping Use Never Used 01/21/24 11:46 Thrive Assessment: Date of Thrive Assessment Date Thrive assessed 04/19/22 01/21/24 11:46 Telehealth Telehealth Telehealth Platform: Telephone Location of provider rendering services: other (work) Location of patient: address on file Patient Identification confirmed using: Name, : Yes Telehealth method: voice only Patient verbally consented to treatment: Yes Patient verbally consented to billing insurance company: Yes Patient informed of any privacy concerns related to visit: Yes Assessment and Plan Assessment & Plan (1) Obesity: Code(s): E66.9 - Obesity, unspecified Plan: Patient?had?requested?medication?to?help?her?with?weight?loss. We?had?sent?a?script?for?Ozempic?which?was?rejected?by?her?insurance?however sending?script?for?Wegovy?was?accepted. Patient?read?a?little?more?about?the?medication?and?had?some?concerns. She?has?no?personal?history?of?thyroid?ca ncer?but?does?have?some?family?members?with?thyroid?cancer. We?discussed?that?this?medication?has?shown?medullary?thyroid?cancer?in?animals? but?no?humans?and?the?recommendation?is?to?avoid?in?humans?w ho?have?had?a?personal?history?of?medullary?thyroid?cancer?or MEN-1 which?she?also?does?not?have. Patient?would?like?to?proceed?and?will?get?medication. We?have?a?follow-up?appointment?in?March. Medications: Refilled gabapentin 600mg (2 tabs) in AM and 600mg (2tabs) in PM orally 2 times a day; 30 days 120 caps 3RF Coding Level of Care Code Tele Est Pt Level 2 (30017) Diagnoses Obesity E66.9
== END ==
LOC: HO.HMGFM 11:52
PROVIDERS: PCP Family Medicine; Visit Provider Family Medicine
DX: E66.9 Obesity, unspecified (principal)
CPT/HCPCS: 99441

== ENCOUNTER 2024-04-24 14:39 | Outpatient (AMB) | payer OTHER, SELFPAY ==
--- NOTE | 2024-04-24 14:58 | MHC.PC.OV ---
Vital Signs 04/24/24 15:00 Height 5 ft 4 in BP 118/72 Blood Pressure Location Lt brachial Position Sitting Pulse Source Pulse Oximeter Oxygen Delivery Method Room Air Intake Visit Reasons: f/u hypertension, weight Intake Note: Follow up htn. Did not start Wegovy, it took her 3 months to get it. She plans on starting it 04/26/24 Lab Support Service Tech Required: No Allergies penicillin V Allergy (Unknown, Verified 04/24/24 14:58) Swelling difficulty breathing Sulfa (Sulfonamide Antibiotics) Allergy (Unknown, Verified 04/24/24 14:58) Rash itchininess Tobacco use date assessed: 10/04/23 Dental Screening Dental Screen Date: 10/04/23 HPI f/u hypertension, weight HPI Details 53 y/o female presents to f/u hypertension, weight. Blood pressure today 118/72. She is on lisinopril 10mg, metoprolol 25mg b.i.d. Has had difficulty acquiring Wegovy and has not started this yet. 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 1. Little interest or pleasure in doing things: not at all 2. Feeling down, depressed, or hopeless: not at all 3. Trouble falling or staying asleep, or sleeping too much: not at all 4. Feeling tired or having little energy: not at all 5. Poor appetite or overeating: not at all 6. Feeling bad about yourself - or that you are a failure or have let yourself or your family down: not at all 7. Trouble concentrating on things, such as reading the newspaper or watching television: not at all 8. Moving or speaking so slowly that other people could have noticed. Or the opposite - being so fidgety or restless that you have been moving around a lot more than usual: not at all 9. Thoughts that you would be better off or of hurting yourself in some way: not at all Total score: 0 Depression Screening Interpretation: Negative Depression Screening Done: Yes 07193 - PHQ-9 Billing: Yes Source: Developed by Drs. Marcos Leyva, Shefali Storm, Carmine Contreras and colleagues, with an educational geronimo from [employer]. Thrive Questionnaire Date Thrive assessed: 04/24/24 I am a: Patient What is your living situation today?: I have a steady place to live Within the past 12 months, did the food you bought not last and you didn't have the money to get more?: Never true Within the past 12 months, did you worry whether your food would run out before you got money to buy more?: Never true Do you have trouble paying for medicines?: No Do you have trouble getting transportation to medical appointments?: No Do you have trouble paying your heating and electricity bill?: No Do you have trouble taking care of your child, family member or friend?: No Do you have trouble with day-to-day activities such as bathing, preparing meals, shopping, managing finances, etc.?: No Are you currently unemployed and looking for a job?: No Are you interested in more education?: No Please select the resources that you would like help with: None Currently or been in a relationship where the following occur: No concerns reported THRIVE Score: 0 AUDIT C Alcohol Use Questionnaire (AUDIT-C) 1. How often do you have a drink containing alcohol?: Never Total Score: 0 DEBORAH-7 AMB Questionnaire DEBORAH-7 Date DEBORAH - 7 assessed: 04/24/24 Feeling nervous, anxious, or on edge: 0 = Not at all Not being able to stop or control worryin = Not at all Worrying too much about different things: 0 = Not at all Trouble relaxin = Not at all Being so restless that it is hard to sit still: 0 = Not at all Becoming easily annoyed or irritable: 0 = Not at all Feeling afraid as if something awful might happen: 0 = Not at all Total DEBORAH-7 score (0-4 normal; 5-9 mild; 10-14 moderate; 15-21 severe): 0 Source: Developed by Drs. Marcos Leyva, Shefali Storm, Carmine Contreras and colleagues, with an educational geronimo from [employer]. DEBORAH-7 Assessment Billing DEBORAH-7 Assessment Tool: DEBORAH-7 Assessment 26676 Review of Systems Const Denies chills, Denies fatigue, Denies fever(s), Denies headache(s) and Denies weakness ENT Denies dizziness and Denies headache(s) Card Denies dyspnea Resp Denies cough, Denies dyspnea, Denies wheezing and Denies other (shortness of breath) Musc Denies numbness and Denies tingling Neuro Denies dizziness, Denies headache(s), Denies numbness, Denies tingling and Denies weakness Psych Denies anxiety and Denies depression Endo Denies fatigue Aller/Immun Denies wheezing Physical exam (Primary Care) Vital Signs: Last Vital Signs BP 118/72 04/24/24 15:00 Oxygen Delivery Method Room Air 04/24/24 15:00 Tobacco/Smoking Status: Tobacco use Status Tobacco use date assessed 10/04/23 04/24/24 15:06 Patient Tobacco Use Status Former Tobacco user 04/24/24 15:10 Tobacco use type Cigarette 04/24/24 15:10 e-Cigarette/Vaping Use Never Used 04/24/24 15:10 PHQ-9: PHQ-9 Score PHQ-9: Total score 0 04/24/24 15:13 Depression Screening Interpretation: Negative Thrive Assessment: Date of Thrive Assessment Date Thrive assessed 04/24/24 04/24/24 15:10 Currently or been in a relationship where the following occur: No concerns reported Const General: well developed; No acute distress Nutritional Appearance: well nourished Orientation/consciousness: patient oriented x3 HENMT Head: Yes normocephalic and Yes atraumatic Eyes General: appearance normal, both eyes and all related structures Pupils: Equal, round and reactive pupils present EOM: EOMs intact bilaterally Resp Effort & Inspection: normal respiratory effort Auscultation: clear to auscultation bilaterally Cardio Rate: regular rate Rhythm: regular rhythm Heart sounds: S1 normal heart sound present, S2 normal heart sound present, no gallops, no murmurs and no rubs Neuro General: patient oriented x3 and gait normal Cranial nerves: Yes Equal, round and reactive pupils present Psych Affect: normal affect Coding Level of Care Code Est Pt Level 4 (32427) Diagnoses Essential hypertension I10 Obesity E66.9 Palpitations R00.2 Additional Codes DEBORAH-7 Assessment Billing - DEBORAH-7 Assessment Tool: DEBORAH-7 Assessment 46056 ([id number]) PHQ-9 - 27772 - PHQ-9 Billing: Yes ([id number]) Assessment & Plan Assessment & Plan (1) Essential hypertension: Code(s): I10 - Essential (primary) hypertension Category: Medical Plan: Blood?pressure?is?well?controlled?on?lisinopril?and?metoprolol.??Goal?is?less?than?140/90 Continue?current?medications (2) Obesity: Code(s): E66.9 - Obesity, unspecified Category: Medical Plan: Had?started?patient?on?Wegovy. She?has?had?difficulty?acquiring?this?and?has?not?started?it?yet. We?can?follow-up?at?a?subsequent?visit (3) Palpitations: Code(s): R00.2 - Palpitations Category: Medical Plan: Palpitations?and?PVCs She?has?Holter?monitor?study?and?follow-up?with?Cardiology She?is?on?metoprolol. No?changes?to?her?medication.??Follow-up?with?Cardiology?as?recommended
[2024-04-24 15:00] VITALS: BP 118/72
== END 2024-04-24 15:26 | disposition home or self-care (01) ==
PROVIDERS: PCP Family Medicine; Visit Provider Family Medicine
DX: I10 Essential (primary) hypertension (principal); E66.9 Obesity, unspecified; R00.2 Palpitations

== ENCOUNTER → 2024-04-24 14:39 | Outpatient (BNVA) | payer OTHER, SELFPAY | PROVIDERS: PCP Family Medicine; Visit Provider Family Medicine | DX: I10 Essential (primary) hypertension (principal); E66.9 Obesity, unspecified; R00.2 Palpitations; Z79.899 Other long term (current) drug therapy | CPT/HCPCS: 96127 ==

== ENCOUNTER 2024-05-20 13:41 | Outpatient (AMB) | payer OTHER, SELFPAY ==
--- NOTE | 2024-05-20 14:10 | A.OFFPC_ITS ---
Vital Signs 05/20/24 14:15 Height 5 ft 4 in BMI Reason not done Patient refused/unable BP 120/70 Blood Pressure Location Lt brachial Position Sitting Respiration 16 Pulse 64 Pulse Source Pulse Oximeter Temp 98.6 F Temp Source Oral Pulse Oximetry (%) 98 Oxygen Delivery Method Room Air Intake Visit Reasons: CPE with f/u labs and health maint Intake Note: CPE Is last menstrual period known: No Post menopausal: Yes Patient : No Allergies penicillin V Allergy (Unknown, Verified 05/20/24 14:12) Swelling difficulty breathing Sulfa (Sulfonamide Antibiotics) Allergy (Unknown, Verified 05/20/24 14:12) Rash itchininess Medication List - Last Reconciled 05/20/24 by Zia Serrano MD aspirin 81 mg PO DAILY buspirone 15 mg PO BID 90 days cholecalciferol (vitamin D3) 25 mcg PO DAILY diclofenac sodium 1% 4 grams topical QID 30 days gabapentin 600mg (2 tabs) in AM and 600mg (2tabs) in PM orally 2 times a day; 30 days ibuprofen 600 mg (30 mL) PO Q8H 30 days lidocaine 5% 1 ea topical BID 30 days lisinopril 10 mg PO DAILY 90 days lorazepam 0.5 mg PO DAILY PRN 1 month metoprolol tartrate 25 mg PO BID 90 days semaglutide (weight loss) (Wegovy) 0.25 mg (0.5 mL) subcut QWEEK 28 days tramadol 2 in the am,1 in the pm, 2 in evening as needed; ok for last picker on 09/06/22 28 days Tobacco use date assessed: 05/20/24 Dental Screening Dental Screen Date: 05/20/24 Did you have a dental visit in the last 12 months?: Yes Did you have a dental problem in the last 6 months where you did not have access to dental care?: No Was dental information given to patient?: Patient has dentist HPI CPE with f/u labs and health maint HPI0 Details 53 y/o female presents for a CPE with f/ u labs and health maintenance. Has been on wegovy for about a month now. Notes she has been tolerating this well. Notes metoprolol has been helping for palpitations. Up to date with her health maintenance. HPI Comments History of Present Illness Details Documentation assistance for Zia Serrano MD, was provided by Alcon Madera, Brand Sales Consultant on 05/20/2024 at 2:47 PM EST. I, Dr. Serrano, have read, observed, and verified documentation. 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 1. Little interest or pleasure in doing things: not at all 2. Feeling down, depressed, or hopeless: not at all 3. Trouble falling or staying asleep, or sleeping too much: not at all 4. Feeling tired or having little energy: not at all 5. Poor appetite or overeating: not at all 6. Feeling bad about yourself - or that you are a failure or have let yourself or your family down: not at all 7. Trouble concentrating on things, such as reading the newspaper or watching television: not at all 8. Moving or speaking so slowly that other people could have noticed. Or the opposite - being so fidgety or restless that you have been moving around a lot more than usual: not at all 9. Thoughts that you would be better off or of hurting yourself in some way: not at all Total score: 0 Depression Screening Interpretation: Negative Depression Screening Done: Yes 68251 - PHQ-9 Billing: Yes Source: Developed by Drs. Marcos Leyva, Shefali Storm, Carmine Contreras and colleagues, with an educational geronimo from [email or web address]. Thrive Questionnaire Date Thrive assessed: 05/20/24 I am a: Patient What is your living situation today?: I have a steady place to live Within the past 12 months, did the food you bought not last and you didn't have the money to get more?: Never true Within the past 12 months, did you worry whether your food would run out before you got money to buy more?: Never true Do you have trouble paying for medicines?: No Do you have trouble getting transportation to medical appointments?: No Do you have trouble paying your heating and electricity bill?: No Do you have trouble taking care of your child, family member or friend?: No Do you have trouble with day-to-day activities such as bathing, preparing meals, shopping, managing finances, etc.?: No Are you currently unemployed and looking for a job?: No Are you interested in more education?: No Please select the resources that you would like help with: None Currently or been in a relationship where the following occur: No concerns reported THRIVE Score: 0 AUDIT C Alcohol Use Questionnaire (AUDIT-C) 1. How often do you have a drink containing alcohol?: Never Total Score: 0 DEBORAH-7 AMB Questionnaire DEBORAH-7 Date DEBORAH - 7 assessed: 05/20/24 Feeling nervous, anxious, or on edge: 0 = Not at all Not being able to stop or control worryin = Not at all Worrying too much about different things: 0 = Not at all Trouble relaxin = Not at all Being so restless that it is hard to sit still: 0 = Not at all Becoming easily annoyed or irritable: 0 = Not at all Feeling afraid as if something awful might happen: 0 = Not at all Total DEBORAH-7 score (0-4 normal; 5-9 mild; 10-14 moderate; 15-21 severe): 0 Source: Developed by Drs. Marcos Leyva, Shefali Storm, Carmine Contreras and colleagues, with an educational geronimo from [email or web address]. DEBORAH-7 Assessment Billing DEBORAH-7 Assessment Tool: DEBORAH-7 Assessment 13132 Review of Systems Const Denies chills, Denies fatigue, Denies fever(s), Denies headache(s) and Denies weakness Eyes Denies change in vision ENT Denies dizziness, Denies headache(s), Denies hearing loss, Denies nasal congestion, Denies sinus pain, Denies sinus pressure and Denies sore throat Card Denies chest pain, Denies lightheadedness, Denies dyspnea and Denies other (palpitations) Resp Denies cough, Denies dyspnea and Denies wheezing GI Denies abdominal pain, Denies melena, Denies hematochezia, Denies change in bowel habits, Denies dyspepsia and Denies nausea Denies hematuria and Denies dysuria Musc Denies abnormal gait, Denies myalgias, Denies arthralgias, Denies numbness and Denies tingling Skin/Breast Denies rash, Denies unusual bruising and Denies wounds Neuro Denies abnormal gait, Denies dizziness, Denies headache(s), Denies memory loss, Denies numbness, Denies Sensory deficit (Neuro), Denies tingling and Denies weakness Psych Denies anxiety, Denies depression and Denies memory loss Endo Denies cold intolerance, Denies fatigue, Denies heat intolerance, Denies polydipsia and Denies polyuria Cedrick/Lymph Denies easy bleeding and Denies easy bruising Aller/Immun Denies wheezing Physical exam (Primary Care) Vital Signs: Last Vital Signs Temp 98.6 F 05/20/24 14:15 Pulse 64 05/20/24 14:15 Resp 16 05/20/24 14:15 BP 120/70 05/20/24 14:15 Pulse Ox 98 05/20/24 14:15 Oxygen Delivery Method Room Air 05/20/24 14:15 Tobacco/Smoking Status: Tobacco use Status Tobacco use date assessed 05/20/24 05/20/24 14:20 Patient Tobacco Use Status Former Tobacco user 05/20/24 14:20 Tobacco use type Cigarette 05/20/24 14:20 e-Cigarette/Vaping Use Never Used 05/20/24 14:20 PHQ-9: PHQ-9 Score PHQ-9: Total score 0 05/20/24 14:20 Depression Screening Interpretation: Negative Thrive Assessment: Date of Thrive Assessment Date Thrive assessed 05/20/24 05/20/24 14:20 Currently or been in a relationship where the following occur: No concerns reported Const General: no acute distress, well developed, alert and awake Nutritional Appearance: well nourished and obese Orientation/consciousness: patient oriented x3 HENMT Head: Yes normocephalic and Yes atraumatic Ears: hearing grossly normal bilaterally and TM's normal bilaterally General nose exam: Normal external nose present and Normal nares present Mouth: Normal oral and palatal mucosa present and moist mucous membranes Teeth and gingiva: dentition normal Throat: Yes posterior oropharynx normal Eyes General: appearance normal, both eyes and all related structures Pupils: Equal, round and reactive pupils present and Pupil accommodation reflex normal EOM: EOMs intact bilaterally Neck Neck: Yes normal visual inspection, Yes no lymphadenopathy and Yes trachea midline Thyroid: Thyroid normal Carotids: no bruits Lymphatic: no lymphadenopathy noted Chest Chest palpation & inspection: normal inspection of the chest Resp Effort & Inspection: normal respiratory effort Auscultation: clear to auscultation bilaterally Cardio Rate: regular rate Rhythm: regular rhythm Heart sounds: S1 normal heart sound present, S2 normal heart sound present, no gallops, no murmurs and no rubs Bruits: no abdominal aortic bruits and no carotid bruits GI Palpation (GI): No Abdominal aortic bruit present, Soft to palpation, nontender, No hepatosplenomegaly present and No Rebound tenderness present Auscultation: normal bowel sounds General: Yes no CVA tenderness Back/Spine/Pelvis Back: no CVA tenderness Cervical Spine: cervical ROM normal and No Cervical spine tenderness Thoracic/Lumbar Spine: thoraco-lumbar ROM normal, No pain with thoraco-lumbar ROM, No thoracic spinal tenderness and No lumbar spinal tenderness Skin Lesions: no lesions Rashes: no rashes Trauma: no lacerations or abrasions Wounds: no wounds Nails: normal Neuro General: patient oriented x3 Cranial nerves: Yes Equal, round and reactive pupils present Cognition (Neuro): normal cognition Gait exam (Neuro): Normal gait present Motor exam (neuro): 5/5 motor strength present throughout Sensory Exam: No Sensory deficit (Neuro) Deep tendon reflexes (DTR's): Right patellar reflex intensity grade: 2+ and Left patellar reflex intensity grade: 2+ Extrem General: Yes normal to inspection and No edema Psych Appearance: grossly normal Affect: normal affect Attitude: cooperative Thought process: Normal thought process present Coding Level of Care Code Est Pt Prev Care 40-64y(65953) Diagnoses Annual physical exam Z00.00 Essential hypertension I10 Obesity E66.9 Palpitations R00.2 Screening for colon cancer Z12.11 Screening for cervical cancer Z12.4 Breast cancer screening by mammogram Z12.31 Additional Codes DEBORAH-7 Assessment Billing - DEBORAH-7 Assessment Tool: DEBORAH-7 Assessment 25113 ([id number]) PHQ-9 - 65010 - PHQ-9 Billing: Yes ([id number]) Assessment & Plan Assessment & Plan (1) Annual physical exam: Code(s): Z00.00 - Encounter for general adult medical examination without abnormal findings Category: Medical Plan: 53-year-old?female?presents?for?complete?physical?exam Encouraged?healthy?diet?with?active?lifestyle?and?plenty?of?exercise (2) Essential hypertension: Code(s): I10 - Essential (primary) hypertension Category: Medical Plan: Blood?pressure?is?controlled.??Goal?is?less?than?140/90 (3) Obesity: Code(s): E66.9 - Obesity, unspecified Category: Medical Plan: Patient?is?taking?Wegovy?and?tolerat ing?this?well.??She?has?noticed?a?decrease?in?her?appetite?though?she?has?not?no ticed?a?change?in?weight.??Declined?to?be?weighed?today. As?she?is?tolerating?medication,?will?increase?from?0.25?mg?to?0.5?mg?weekly. (4) Palpitations: Code(s): R00.2 - Palpitations Category: Medical Plan: Followed?by?cardiology?and?has?upcoming?Holter?test Stable Follow-up?Cardiology?as?recommended.??Continue?metoprolol?as?prescribed (5) Screening for colon cancer: Code(s): Z12.11 - Encounter for screening for malignant neoplasm of colon Category: Medical Plan: Patient?had?Cologuard?last?year.??Negative Up-to-date Will?continue?screening?every?3?years (6) Screening for cervical cancer: Code(s): Z12.4 - Encounter for screening for malignant neoplasm of cervix Category: Medical Plan: Followed?by?Avril?Julio Follow-up?as?recommended (7) Breast cancer screening by mammogram: Code(s): Z12.31 - Encounter for screening mammogram for malignant neoplasm of breast Category: Medical Plan: Patient?says?she?had?mammogram?this?year?at?[facility]. Patient?says?this?was?normal?and?recommended?annual?screening. ?Up-to-date Will?request?report Medications: Changed From semaglutide (weight loss) (Wegovy) administer weeks 1 through 4 of therapy 0.25 mg (0.5 mL) subcut QWEEK 28 days 2 mL 3RF To semaglutide (weight loss) administer weeks 1 through 4 of therapy 0.5 mg (0.5 mL) subcut QWEEK 28 days 2 mL 3RF Refilled tramadol 2 in the am,1 in the pm, 2 in evening as needed; ok for last picker on 09/06/22 28 days 140 tabs 0RF
[2024-05-20 14:15] VITALS: BP 120/70; PULSE 64; RESP 16; TEMP 37; O2SAT 98
== END 2024-05-20 14:55 | disposition home or self-care (01) ==
PROVIDERS: PCP Family Medicine; Visit Provider Family Medicine
DX: Z00.00 Encounter for general adult medical examination without abnormal findings (principal); I10 Essential (primary) hypertension; E66.9 Obesity, unspecified; R00.2 Palpitations; Z12.11 Encounter for screening for malignant neoplasm of colon; Z12.31 Encounter for screening mammogram for malignant neoplasm of breast

== ENCOUNTER → 2024-05-20 13:41 | Outpatient (BNVA) | payer OTHER, SELFPAY | PROVIDERS: PCP Family Medicine; Visit Provider Family Medicine | DX: Z00.00 Encounter for general adult medical examination without abnormal findings (principal); I10 Essential (primary) hypertension; E66.9 Obesity, unspecified; R00.2 Palpitations; Z79.899 Other long term (current) drug therapy | CPT/HCPCS: 96127 ==

== ENCOUNTER 2024-05-29 08:48 | Outpatient (AMB) | payer OTHER, SELFPAY ==
--- NOTE | 2024-05-29 09:13 | A.OFFPC_ITS ---
Vital Signs 05/29/24 09:16 Height 5 ft 4 in Weight 294 lb 4 oz BMI 50.5 BP 130/80 Blood Pressure Location Lt brachial Respiration 14 Pulse 83 Pulse Source Pulse Oximeter Pulse Oximetry (%) 98 Oxygen Delivery Method Room Air Intake Visit Reasons: lump in back of mouth/throat Intake Note: pt states her dentist seen a nodule on the RT side in the back of her throat Allergies penicillin V Allergy (Unknown, Verified 05/29/24 09:15) Swelling difficulty breathing Sulfa (Sulfonamide Antibiotics) Allergy (Unknown, Verified 05/29/24 09:15) Rash itchininess Tobacco use date assessed: 05/20/24 Dental Screening Dental Screen Date: 05/20/24 HPI lump in back of mouth/throat HPI Details 53 y/o female presents today with compla ints of a lump in the back of her mouth/throat. She notes she had seen her dentist and they had seen a nodule on R side of back of her throat. Denies any difficulty swallowing. Denies any pain. 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 Current occupational exposures/hazards: No Cognitive needs: No Hearing needs: No Vision needs: Yes (Glasses) Questionnaire Thrive Questionnaire Date Thrive assessed: 05/20/24 I am a: Patient What is your living situation today?: I have a steady place to live Within the past 12 months, did the food you bought not last and you didn't have the money to get more?: Never true Within the past 12 months, did you worry whether your food would run out before you got money to buy more?: Never true Do you have trouble paying for medicines?: No Do you have trouble getting transportation to medical appointments?: No Do you have trouble paying your heating and electricity bill?: No Do you have trouble taking care of your child, family member or friend?: No Do you have trouble with day-to-day activities such as bathing, preparing meals, shopping, managing finances, etc.?: No Are you currently unemployed and looking for a job?: No Are you interested in more education?: No Please select the resources that you would like help with: None Currently or been in a relationship where the following occur: No concerns repor edward THRIVE Score: 0 DEBORAH-7 AMB Questionnaire DEBORAH-7 Date DEBORAH - 7 assessed: 05/20/24 Source: Developed by Drs. Marcos Leyva, Shefali Storm, Carmine Contreras and colleagues, with an educational geronimo from [employer]. Review of Systems Const Denies chills, Denies fatigue, Denies fever(s), Denies headache(s) and Denies weakness ENT Denies dizziness and Denies headache(s) Card Denies dyspnea Resp Denies cough, Denies dyspnea, Denies wheezing and Denies other (shortness of breath) Musc Denies numbness and Denies tingling Neuro Denies dizziness, Denies headache(s), Denies numbness, Denies tingling and Denies weakness Psych Denies anxiety and Denies depression Endo Denies fatigue Aller/Immun Denies wheezing Physical exam (Primary Care) Vital Signs: Last Vital Signs Pulse 83 05/29/24 09:16 Resp 14 05/29/24 09:16 BP 130/80 05/29/24 09:16 Pulse Ox 98 05/29/24 09:16 Oxygen Delivery Method Room Air 05/29/24 09:16 BMI result Body Mass Index 50.5 Tobacco/Smoking Status: Tobacco use Status Tobacco use date assessed 05/20/24 05/29/24 09:20 Patient Tobacco Use Status Former Tobacco user 05/29/24 09:20 Tobacco use type Cigarette 05/29/24 09:20 e-Cigarette/Vaping Use Never Used 05/29/24 09:20 Thrive Assessment: Date of Thrive Assessment Date Thrive assessed 05/20/24 05/29/24 09:20 Currently or been in a relationship where the following occur: No concerns reported Const General: well developed; No acute distress Nutritional Appearance: well nourished Orientation/consciousness: patient oriented x3 HENMT Head: Yes normocephalic and Yes atraumatic Eyes General: appearance normal, both eyes and all related structures Pupils: Equal, round and reactive pupils present EOM: EOMs intact bilaterally Resp Effort & Inspection: normal respiratory effort Neuro General: patient oriented x3 and gait normal Cranial nerves: Yes Equal, round and reactive pupils present Psych Affect: normal affect Coding Level of Care Code Est Pt Level 3 (13253) Diagnoses Tonsil, abscess J36 Assessment & Plan Assessment & Plan (1) Tonsil, abscess: Code(s): J36 - Peritonsillar abscess Category: Medical Plan: Small abscess of a tonsillar crypt. No?pain?though?patient?does?feel?well.??No?difficulty?swallowing Patient?has?penicillin?V?listed?on?her?allergy?list?but?she?says?she?has?always? been?a?will?ache?amoxicillin?without?any?problems. Will?give?her?a?script?for?amoxicillin?and?I?advised?warm?saltwater?gargle. If?this?is?worsening?she?will?call?or?return?to?the?office. ?Will?refer?her?to?ENT Medications: New amoxicillin 500 mg (10 mL) PO Q12H 10 days 200 mL 0RF
[2024-05-29 09:16] VITALS: BP 130/80; PULSE 83; RESP 14; O2SAT 98; BMI 50.5
== END 2024-05-29 09:23 | disposition home or self-care (01) ==
PROVIDERS: PCP Family Medicine; Visit Provider Family Medicine
DX: J36 Peritonsillar abscess (principal)

== ENCOUNTER → 2024-05-29 08:48 | Outpatient (BNVA) | payer OTHER, SELFPAY | PROVIDERS: PCP Family Medicine; Visit Provider Family Medicine ==

== ENCOUNTER → 2024-06-16 09:02 | Outpatient (BNV) | payer OTHER, SELFPAY | PROVIDERS: PCP Family Medicine; Visit Provider Internal Medicine Cardiovascular Disease | DX: I44.1 Atrioventricular block, second degree (principal); I49.3 Ventricular premature depolarization | CPT/HCPCS: 93244 ==

== ENCOUNTER 2024-07-23 09:47 | Outpatient (AMB) | payer OTHER, SELFPAY ==
--- NOTE | 2024-07-23 10:12 | A.OFFPC_ITS ---
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 Allergies penicillin V Allergy (Unknown, Verified 07/23/24 10:15) Swelling difficulty breathing Sulfa (Sulfonamide Antibiotics) Allergy (Unknown, Verified 07/23/24 10:15) Rash itchininess Medication List - Last Reconciled 07/23/24 by Zia Serrano MD aspirin 81 mg PO DAILY buspirone 15 mg PO BID 90 days cholecalciferol (vitamin D3) 25 mcg PO DAILY diclofenac sodium 1% 4 grams topical QID 30 days gabapentin 600mg (2 tabs) in AM and 600mg (2tabs) in PM orally 2 times a day; 30 days ibuprofen 600 mg (30 mL) PO Q8H 30 days lidocaine 5% 1 ea topical BID 30 days lisinopril 10 mg PO DAILY 90 days lorazepam 0.5 mg PO DAILY PRN 1 month metoprolol tartrate 25 mg PO BID 90 days semaglutide (weight loss) 0.5 mg (0.5 mL) subcut QWEEK 28 days tramadol 2 in the am,1 in the pm, 2 in evening as needed; 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 Weight today 188 lbs, BMI 32.3. She is on semaglutide 0.5mg. Had complaints of a small abscess of a tonsillar crypt. She notes she followed up with a dentist for this - pt notes this had improved after a round of antibiotics but she notes it is still there. She would like a referral to ENT. HPI Comments History of Present Illness Details Documentation assistance for Zia Serrano MD, was provided by Alcon Madera,? Instructor Modeling on 07/23/2024 at 10:28 AM EST. I, Dr. Serrano, have read, observed, and verified documentation. ?? 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 Current occupational exposures/hazards: No Cognitive needs: No Hearing needs: No Vision needs: Yes (Glasses) Questionnaire Thrive Questionnaire Date Thrive assessed: 05/20/24 I am a: Patient What is your living situation today?: I have a steady place to live Within the past 12 months, did the food you bought not last and you didn't have the money to get more?: Never true Within the past 12 months, did you worry whether your food would run out before you got money to buy more?: Never true Do you have trouble paying for medicines?: No Do you have trouble getting transportation to medical appointments?: No Do you have trouble paying your heating and electricity bill?: No Do you have trouble taking care of your child, family member or friend?: No Do you have trouble with day-to-day activities such as bathing, preparing meals, shopping, managing finances, etc.?: No Are you currently unemployed and looking for a job?: No Are you interested in more education?: No Please select the resources that you would like help with: None Currently or been in a relationship where the following occur: No concerns reported THRIVE Score: 0 DEBORAH-7 AMB Questionnaire DEBORAH-7 Date DEBORAH - 7 assessed: 05/20/24 Source: Developed by Drs. Marcos Leyva, Shefali Storm, Carmine Contreras and colleagues, with an educational geronimo from [employer]. Review of Systems Const Denies chills, Denies fatigue, Denies fever(s), Denies headache(s) and Denies weakness ENT Denies dizziness and Denies headache(s) Card Denies dyspnea Resp Denies cough, Denies dyspnea, Denies wheezing and Denies other (shortness of breath) Musc Denies numbness and Denies tingling Neuro Denies dizziness, Denies headache(s), Denies numbness, Denies tingling and Denies weakness Psych Denies anxiety and Denies depression Endo Denies fatigue Aller/Immun Denies wheezing Physical exam (Primary Care) Vital Signs: Last Vital Signs Temp 98.2 F 07/23/24 10:16 Pulse 72 07/23/24 10:16 Resp 14 07/23/24 10:16 BP 120/80 07/23/24 10:16 Pulse Ox 97 07/23/24 10:16 Oxygen Delivery Method Room Air 07/23/24 10:16 BMI result Body Mass Index 32.3 Tobacco/Smoking Status: Tobacco use Status Tobacco use date assessed 05/20/24 07/23/24 10:14 Patient Tobacco Use Status Former Tobacco user 07/23/24 10:14 Tobacco use type Cigarette 07/23/24 10:14 e-Cigarette/Vaping Use Never Used 07/23/24 10:14 Thrive Assessment: Date of Thrive Assessment Date Thrive assessed 05/20/24 07/23/24 10:14 Currently or been in a relationship where the following occur: No concerns repor edward Const General: well developed; No acute distress Nutritional Appearance: well nourished Orientation/consciousness: patient oriented x3 HENMT Head: Yes normocephalic and Yes atraumatic Eyes General: appearance normal, both eyes and all related structures Pupils: Equal, round and reactive pupils present EOM: EOMs intact bilaterally Resp Effort & Inspection: normal respiratory effort Neuro General: patient oriented x3 and gait normal Cranial nerves: Yes Equal, round and reactive pupils present Psych Affect: normal affect Coding Level of Care Code Est Pt Level 4 (75260) Diagnoses Obesity E66.9 Essential hypertension I10 Tonsil, abscess J36 Assessment & Plan Assessment & Plan (1) Obesity: Code(s): E66.9 - Obesity, unspecified Category: Medical Plan: Much?improved on?Wegovy Patient?notes?she?has?lost?about?11?lb?so?far.??Quite?pleased?with?results. No?adverse?effects Increasing?Wegovy?to?1.0?mg?weekly Will?follow-up?in?about?3?months. (2) Essential hypertension: Code(s): I10 - Essential (primary) hypertension Category: Medical Plan: Blood?pressure?is?controlled. Goal?is?less?than?140/90 Continue?current?medications (3) Tonsil, abscess: Code(s): J36 - Peritonsillar abscess Category: Medical Plan: Ongoing?tonsillar?abscess - small?and?initially?bone?by?her?dentist. I?did?give?her?a?round?of?amoxicillin.??This?has?decreased?in?size. Patient?would?like?a?referral?to ENT? Referred Orders: Referrals Ear/Nose/Throat Referral J36 - Peritonsillar abscess Medications: Changed From semaglutide (weight loss) administer weeks 1 through 4 of therapy 0.5 mg (0.5 mL) subcut QWEEK 28 days 2 mL 3RF To semaglutide (weight loss) 1 mg (0.5 mL) subcut QWEEK 28 days 2 mL 3RF Refilled amoxicillin 500 mg (10 mL) PO Q12H 10 days 200 mL 0RF
[2024-07-23 10:16] VITALS: BP 120/80; PULSE 72; RESP 14; TEMP 36.8; O2SAT 97; BMI 32.3
--- OUTSIDE RECORDS SUMMARY | 2024-07-23 11:51 | XMS_ITS | Clinical Summary ---
Author Organization [employer] Address [address] [facility] [place] [address] Care Team Providers Care Speech Writer Name Role Phone Unavailable Primary Care Provider Unavailabl e Social History Tobacco Use Types Packs/Day Years Used Date Smoking Tobacco: Never Assessed Comments Unknown Sex and Gender Information Value Date Recorded Sex Assigned at Not on file Legal Sex Female 8:40 PM EDT Gender Identity Not on file Sexual Orientation Not on file Plan of Treatment Health Maintenance Due Date Last Done Comments CT Colonography 1971 Colonoscopy 1971 Colorectal Cancer Screening 1971 Depression Screening 1971 FIT DNA/Cologuard 1971 FIT 1971 FOBT 1971 HIV Screening 1971 SDOH Screening 1971 Sigmoidoscopy 1971 Alcohol/Substance Use Screening 1983 Tobacco Screening 1983 Hepatitis C Screening 07/17/1989 DTaP/Tdap/Td Vaccines (1 - Tdap) 07/17/1990 Hepatitis B Vaccines (1 of 3 - 19+ 3-dose series) 07/17/1990 Pap Smear 07/17/1992 Cervical Cancer Screening 07/17/2001 HPV/Cotest 07/17/2001 Mammogram 2011 Pneumococcal Vaccine: 50+ Years (1 of 1 - PCV) 07/17/2021 Zoster Vaccines (1 of 2) 07/17/2021 COVID-19 Vaccine (4 - 2023-2 5 season) 2024 04/25/2021, 08/24/2020, 07/30/2020 Influenza Vaccine (#1) 2024 , 02/13/2021 RSV Patients and Patients Aged 60 years or older (1 - 1-dose 75+ series) 07/17/2046 HIB Vaccines Aged Out No longer eligi ble based on patient's age to complete this topic HPV Vaccines Aged Out No longer eligi ble based on patient's age to complete this topic Hepatitis A Vaccines Aged Out No long er eligible based on patient's age to complete this topic IPV Vaccines Aged Out No longer eligi ble based on patient's age to complete this topic Meningococcal Vaccine Aged Out No palma celine eligible based on patient's age to complete this topic RSV under 20 months Aged Out No longe r eligible based on patient's age to complete this topic Rotavirus Vaccines Aged Out No longer eligible based on patient's age to complete this topic Insurance [facility] [place] [phone]
== END 2024-07-23 10:32 | disposition home or self-care (01) ==
PROVIDERS: PCP Family Medicine; Visit Provider Family Medicine
DX: I10 Essential (primary) hypertension (principal); E66.9 Obesity, unspecified; J36 Peritonsillar abscess; Z68.32 Body mass index [BMI] 32.0-32.9, adult

== ENCOUNTER 2024-08-12 12:50 | Outpatient (AMB) | payer OTHER, SELFPAY ==
[2024-08-12 13:06] VITALS: BP 120/78; PULSE 75; BMI 31.4
--- NOTE | 2024-08-12 13:06 | A.OFFVIS_ITS ---
Vital Signs 08/12/24 13:06 Height 5 ft 4 in Weight 182 lb 15.739 oz BMI 31.4 BP 120/78 Blood Pressure Location Lt brachial Position Sitting Pulse 75 Pulse Source Monitor Intake Visit Reasons: 6 mth f/up echo/ sleep Allergies penicillin V Allergy (Unknown, Verified 07/23/24 10:15) Swelling difficulty breathing Sulfa (Sulfonamide Antibiotics) Allergy (Unknown, Verified 07/23/24 10:15) Rash itchininess Medication List - Last Reconciled 08/12/24 by Ho Bueno MD amoxicillin 500 mg (10 mL) PO Q12H 10 days aspirin 81 mg PO DAILY buspirone 15 mg PO BID 90 days cholecalciferol (vitamin D3) 25 mcg PO DAILY diclofenac sodium 1% 4 grams topical QID 30 days gabapentin 600mg (2 tabs) in AM and 600mg (2tabs) in PM orally 2 times a day; 30 days ibuprofen 600 mg (30 mL) PO Q8H 30 days lidocaine 5% 1 ea topical BID 30 days lisinopril 10 mg PO DAILY 90 days lorazepam 0.5 mg PO DAILY PRN 1 month metoprolol tartrate 25 mg PO BID 90 days semaglutide (weight loss) 1 mg (0.5 mL) subcut QWEEK 28 days tramadol 2 in the am,1 in the pm, 2 in evening as needed; 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 She was seen in consultation regarding palpitations and workup had shown PVCs. She still feels some palpitations off and on but improved from before. No other complaints like angina or shortness of breath. No known coronary disease. No prior cardiac history otherwise. She states that she is trying to lose weight using semaglutide. 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 Current occupational exposures/hazards: No Cognitive needs: No Hearing needs: No Vision needs: Yes (Glasses) Review of Systems Const Denies weakness ENT Denies dizziness Card Denies chest pain, Denies chest pain with activity, Denies syncope, Denies rapid heart rate, Denies pedal edema, Denies edema, Denies leg edema, Denies lightheadedness, Denies palpitations, Denies dyspnea, Denies dyspnea on exertion and Denies orthopnea Resp Denies cough, Denies dyspnea and Denies dyspnea on exertion GI Denies hematochezia and Denies change in stool character Musc Denies abnormal gait, Denies muscle cramps, Denies muscle weakness, Denies numbness, Denies radiating pain into limb and Denies tingling Neuro Denies abnormal gait, Denies dizziness, Denies syncope, Denies numbness, Denies tingling and Denies weakness Endo Denies palpitations Physical Exam Vital Signs: Last Vital Signs Pulse 75 08/12/24 13:06 BP 120/78 08/12/24 13:06 BMI result Body Mass Index 31.4 Const General: comfortable and no acute distress Orientation/consciousness: patient oriented x3 HEENT Other: Unremarkable Head: Yes normal to inspection Neck Neck: Yes normal visual inspection Chest Chest palpation & inspection: normal inspection of the chest Resp Auscultation: clear to auscultation bilaterally Cardio Palpation: normal PMI Heart sounds: S1 normal heart sound present, S2 normal heart sound present, no gallops, no murmurs and no rubs GI Palpation (GI): Soft to palpation Back/Spine/Pelvis Other: unremarkable Skin General skin exam: no rashes or lesions noted Neuro General: patient oriented x3 Extrem General: Yes normal to inspection Psych Mental Status: mental status grossly normal Office Procedures EKG Details: EKG with underlying sinus rhythm at 75/Min; no significant ST-T changes and otherwise unremarkable[place]. [id number], Complete Assessment & Plan Assessment & Plan (1) PVCs (premature ventricular contractions): Code(s): I49.3 - Ventricular premature depolarization Category: Medical (2) Essential hypertension: Code(s): I10 - Essential (primary) hypertension Category: Medical (3) Palpitations: Code(s): R00.2 - Palpitations Category: Medical (4) Obesity: Code(s): E66.9 - Obesity, unspecified Category: Medical Plan In the Holter, underlying rhythm is sinus with an average rate of 71/Min. Frequent PVCs with a burden of 10%. Prior to that, PVC burden was 12%. Echocardiogram with LVEF of 56%; normal diastolic function and otherwise unremarkable. In the home sleep study, reported have no sleep apnea but severe snoring. It was recommended for her to have a in-lab study. Patient however states that she barely slept because of her cat. Pathophysiology of PVCs discussed. She does have reasonable burden of PVCs but not profound. No syncope and no high-risk markers. We will plan on getting cardiac MRI to look for scar. We will also get a stress test. She would like to do that at [employer] as she works there. Otherwise, she remains on beta-blockers, possibly for hypertension and can continue that. With ongoing weight loss, her PVC burden might improve. Otherwise, follow up after the testing. Orders: Orders MR cardiac morph fnct w con Today I42.9 - Cardiomyopathy, unspecified, I49.3 - Ventricular premature depolarization CA stress test Today I49.3 - Ventricular premature depolarization Coding Level of Care Code Est Pt Level 4 (06866) Complex EM visit Add On G2211 Diagnoses PVCs (premature ventricular contractions) I49.3 Essential hypertension I10 Palpitations R00.2 Obesity E66.9 CPT Codes EKG - CPT: 11832-[id number], Complete ([id number])
--- OUTSIDE RECORDS SUMMARY | 2024-08-12 15:23 | XMS_ITS | Clinical Summary ---
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 [place] [place] [phone]
== END 2024-08-12 14:11 | disposition home or self-care (01) ==
LOC: HO.HCS 12:51
PROVIDERS: PCP Family Medicine; Visit Provider Internal Medicine
DX: I49.3 Ventricular premature depolarization (principal); I10 Essential (primary) hypertension; R00.2 Palpitations; E66.9 Obesity, unspecified
CPT/HCPCS: 93010; 99214; G2211

== ENCOUNTER → 2024-08-12 12:50 | Outpatient (BNVA) | payer OTHER, SELFPAY | PROVIDERS: PCP Family Medicine; Visit Provider Internal Medicine | DX: I49.3 Ventricular premature depolarization (principal); I10 Essential (primary) hypertension; R00.2 Palpitations; E66.9 Obesity, unspecified; Z68.31 Body mass index [BMI] 31.0-31.9, adult | CPT/HCPCS: 93005 ==

== ENCOUNTER 2024-09-14 13:17 | Outpatient (REF) | payer OTHER, SELFPAY ==
[2024-09-14 14:19] LABS: Anion Gap 11 (12-20); Blood Urea Nitrogen 14 mg/dL (9-16); Calcium 9.5 mg/dL (8.4-10.2); Carbon Dioxide 30 mmol/L (22-29); Chloride 104 mmol/L (96-108); Estimated Glomerular Filt Rate > 60; Glucose Random 85 mg/dL (60-115); Potassium 4.6 mmol/L (3.3-5.1); Sodium 140 mmol/L (135-145)
--- OUTSIDE RECORDS SUMMARY | 2024-09-14 14:44 | XMS_ITS | Clinical Summary ---
Author Organization [employer] Address [address] [facility] [address] [place] [address] Care Team Providers Care Senior Project Architect Name Role Phone Unavailable Primary Care Provider [...] patient's age to complete this topic [place] [facility] [place] [phone]
== END 2024-09-14 13:18 | disposition home or self-care (01) ==
LOC: HO.LAB 13:17
PROVIDERS: PCP Family Medicine; Visit Provider Internal Medicine
DX: I49.3 Ventricular premature depolarization (principal)
CPT/HCPCS: 36415; 80048

== ENCOUNTER 2024-10-13 11:29 | Outpatient (AMB) | payer OTHER, SELFPAY ==
--- NOTE | 2024-10-13 12:25 | A.OFFPC_ITS ---
Vital Signs 10/13/24 12:33 Height 5 ft 4 in Weight 170 lb BMI 29.2 BP 122/72 Blood Pressure Location Lt brachial Position Sitting Respiration 16 Pulse 72 Pulse Source Pulse Oximeter Temp 97.8 F Temp Source Oral Pulse Oximetry (%) 98 Oxygen Delivery Method Room Air Intake Visit Reasons: f/u weight Intake Note: patient is scheduled for weight loss follow-up. Patient has alot concerns that she talk about in visit. Allergies penicillin V Allergy (Unknown, Verified 10/13/24 12:30) Swelling difficulty breathing Sulfa (Sulfonamide Antibiotics) Allergy (Unknown, Verified 10/13/24 12:30) Rash itchininess Medication List - Last Reconciled 10/13/24 by Zia Serrano MD amoxicillin 500 mg (10 mL) PO Q12H 10 days aspirin 81 mg PO DAILY buspirone 15 mg PO BID 90 days cholecalciferol (vitamin D3) 25 mcg PO DAILY diclofenac sodium 1% 4 grams topical QID 30 days gabapentin 600mg (2 tabs) in AM and 600mg (2tabs) in PM orally 2 times a day; 30 days ibuprofen 600 mg (30 mL) PO Q8H 30 days lidocaine 5% 1 ea topical BID 30 days lisinopril 10 mg PO DAILY 90 days lorazepam 0.5 mg PO DAILY PRN 1 month metoprolol tartrate 25 mg PO BID 90 days semaglutide (weight loss) 1 mg (0.5 mL) subcut QWEEK 28 days tramadol 2 in the am,1 in the pm, 2 in evening as needed; 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 Had increased wegovy to 1mg weekly. Had been following up with Cardiology for PVCs, palpitations. Home sleep study reported no sleep apnea but severe snoring. Was recommended to have a in lab study. They plan on getting cardiac MRI to look for scar. Also plan for a stress test. MRI 09/19/24 showed several high T2 signal lesions in L liver measuring up to 1.5 cm likely benign. Normal size left ventricle. Normal myocardial thickness and normal wall motion. Mild size ill-defined intramural delayed enhancement signal at basal inf erolateral wall suggests nonischemic cardiomyopathy of nonspecific etiology, fibrosis, etc. Pt reports difficulty sleeping due to hip pain. 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 1. Little interest or pleasure in doing things: not at all 2. Feeling down, depressed, or hopeless: not at all 3. Trouble falling or staying asleep, or sleeping too much: not at all 4. Feeling tired or having little energy: not at all 5. Poor appetite or overeating: not at all 6. Feeling bad about yourself - or that you are a failure or have let yourself or your family down: not at all 7. Trouble concentrating on things, such as reading the newspaper or watching television: not at all 8. Moving or speaking so slowly that other people could have noticed. Or the opposite - being so fidgety or restless that you have been moving around a lot more than usual: not at all 9. Thoughts that you would be better off or of hurting yourself in some way: not at all Total score: 0 Depression Screening Interpretation: Negative Depression Screening Done: Yes Source: Developed by Drs. Marcos Leyva, Shefali Storm, Carmine Contreras and colleagues, with an educational geronimo from [employer]. Thrive Questionnaire Date Thrive assessed: 10/13/24 I am a: Patient What is your living situation today?: I have a steady place to live Within the past 12 months, did the food you bought not last and you didn't have the money to get more?: Never true Within the past 12 months, did you worry whether your food would run out before you got money to buy more?: Never true Do you have trouble paying for medicines?: No Do you have trouble getting transportation to medical appointments?: No Do you have trouble paying your heating and electricity bill?: No Do you have trouble taking care of your child, family member or friend?: No Do you have trouble with day-to-day activities such as bathing, preparing meals, shopping, managing finances, etc.?: No Are you currently unemployed and looking for a job?: No Are you interested in more education?: No Please select the resources that you would like help with: None Currently or been in a relationship where the following occur: No concerns reported THRIVE Score: 0 DEBORAH-7 AMB Questionnaire DEBORAH-7 Date DEBORAH - 7 assessed: 05/20/24 Source: Developed by Drs. Marcos Leyva, Shefali Storm, Carmine Contreras and colleagues, with an educational geronimo from [employer]. Review of Systems Const Denies chills, Denies fatigue, Denies fever(s), Denies headache(s) and Denies weakness ENT Denies dizziness and Denies headache(s) Card Denies dyspnea Resp Denies cough, Denies dyspnea, Denies wheezing and Denies other (shortness of breath) Musc Denies numbness and Denies tingling Neuro Denies dizziness, Denies headache(s), Denies numbness, Denies tingling and Denies weakness Psych Denies anxiety and Denies depression Endo Denies fatigue Aller/Immun Denies wheezing Physical exam (Primary Care) Vital Signs: Last Vital Signs Temp 97.8 F 10/13/24 12:33 Pulse 72 10/13/24 12:33 Resp 16 10/13/24 12:33 Pulse Ox 98 10/13/24 12:33 Oxygen Delivery Method Room Air 10/13/24 12:33 Tobacco/Smoking Status: Tobacco use Status Tobacco use date assessed 10/13/24 10/13/24 12:35 Patient Tobacco Use Status Former Tobacco user 10/13/24 12:26 Tobacco use type Cigarette 10/13/24 12:26 e-Cigarette/Vaping Use Never Used 10/13/24 12:26 PHQ-9: PHQ-9 Score PHQ-9: Total score 0 10/13/24 12:37 Depression Screening Interpretation: Negative Thrive Assessment: Date of Thrive Assessment Date Thrive assessed 10/13/24 10/13/24 12:35 Currently or been in a relationship where the following occur: No concerns reported Const General: well developed; No acute distress Nutritional Appearance: well nourished Orientation/consciousness: patient oriented x3 HENMT Head: Yes normocephalic and Yes atraumatic Eyes General: appearance normal, both eyes and all related structures Pupils: Equal, round and reactive pupils present EOM: EOMs intact bilaterally Resp Effort & Inspection: normal respiratory effort Neuro General: patient oriented x3 and gait normal Cranial nerves: Yes Equal, round and reactive pupils present Psych Affect: normal affect Coding Level of Care Code Est Pt Level 4 (19206) Diagnoses Obesity E66.9 Essential hypertension I10 Palpitations R00.2 PVCs (premature ventricular contractions) I49.3 Liver lesion K76.9 Hip pain M25.559 Assessment & Plan Assessment & Plan (1) Obesity: Code(s): E66.9 - Obesity, unspecified Category: Medical Plan: Significantly?improving?with?semaglutide Continue?current?medication Will?continue?to?monitor (2) Essential hypertension: Code(s): I10 - Essential (primary) hypertension Category: Medical Plan: Blood?pressure?is?controlled.??Goal?is?less?than?130/80 Continue?metoprolol (3) Palpitations: Code(s): R00.2 - Palpitations Category: Medical Plan: Frequent?palpitations?and?PVCs Followed?by?cardiology Stress?test was?okay. MRI?shows?Mild sized ill-defined intramural delayed enhancement signal at the basal inferolateral wall suggests nonischemic cardiomyopathy of nonspecific etiology, fibrosis etc.. Ejection?fraction?60%?is?normal. Follow-up?with?Cardiology?as?recommended Continue?metoprolol?for?blood?pressure?and?palpitations?and?anxiety (4) PVCs (premature ventricular contractions): Code(s): I49.3 - Ventricular premature depolarization Category: Medical Plan: As?above (5) Liver lesion: Code(s): K76.9 - Liver disease, unspecified Category: Medical Plan: Incidental?liver?lesion?seen?on?cardiac?MRI Will?check?dedicated?MRI (6) Hip pain: Code(s): M25.559 - Pain in unspecified hip Category: Medical Plan: Ongoing?pain?which?is?worse?at?night Already?taking?significant?quantity?of?tramadol Using?Tylenol?in?the?morning Recommended?she?use?some?at?night?as?well Orders: Orders MR abdomen wo con Today K76.9 - Liver disease, unspecified Medications: Refilled tramadol 2 in the am,1 in the pm, 2 in evening as needed; 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
[2024-10-13 12:33] VITALS: BP 122/72; PULSE 72; RESP 16; TEMP 36.6; O2SAT 98; BMI 29.2
--- OUTSIDE RECORDS SUMMARY | 2024-10-13 13:09 | XMS_ITS | Clinical Summary ---
Author Organization [employer] Address [address] [place] [address] Care Team Providers Care Manager Fund Name Role Phone Unavailable Primary Care Provider [...] Screening 1971 SDOH Screening 1971 Sigmoidoscopy 1971 Disability Screening 1971 Alcohol/Substance Use Screening 1983 Tobacco Screening [...] season) 2024 04/25/2021, 08/24/2020, 07/30/2020 Influenza Vaccine (Season Ended) 2025 02/16/2022, 02/13/2021 RSV Patients and Patients Aged 60 [...] patient's age to complete this topic Meningococcal B Vaccine Aged Out No l onger eligible based on patient's age to complete this topic Meningococcal Vaccine Aged Out No palma celine eligible based on patient's age to complete this topic RSV under 20 months Aged Out No longe r eligible based on patient's age to complete this topic Rotavirus Vaccines Aged Out No longer eligible based on patient's age to complete this topic Insurance [facility] [place] [phone]
== END 2024-10-13 13:11 | disposition home or self-care (01) ==
LOC: HO.HMCFM 11:32
PROVIDERS: PCP Family Medicine; Visit Provider Family Medicine
DX: I10 Essential (primary) hypertension (principal); E66.9 Obesity, unspecified; R00.2 Palpitations; I49.3 Ventricular premature depolarization; K76.9 Liver disease, unspecified; M25.559 Pain in unspecified hip

== ENCOUNTER → 2024-10-13 11:29 | Outpatient (BNVA) | payer OTHER, SELFPAY | PROVIDERS: PCP Family Medicine; Visit Provider Family Medicine | DX: Z13.89 Encounter for screening for other disorder (principal) ==

== ENCOUNTER 2024-11-10 12:19 | Outpatient (AMB) | payer OTHER, SELFPAY ==
--- NOTE | 2024-11-10 12:32 | A.OFFVIS_ITS ---
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 Accompanied by: Self / Same As Patient Allergies penicillin V Allergy (Unknown, Verified 10/13/24 12:30) Swelling difficulty breathing Sulfa (Sulfonamide Antibiotics) Allergy (Unknown, Verified 10/13/24 12:30) Rash itchininess Medication List - Last Reconciled 11/10/24 by Ho Bueno MD amoxicillin 500 mg (10 mL) PO Q12H 10 days aspirin 81 mg PO DAILY buspirone 15 mg PO BID 90 days cholecalciferol (vitamin D3) 25 mcg PO DAILY diclofenac sodium 1% 4 grams topical QID 30 days gabapentin 600mg (2 tabs) in AM and 600mg (2tabs) in PM orally 2 times a day; 30 days ibuprofen 600 mg (30 mL) PO Q8H 30 days lidocaine 5% 1 ea topical BID 30 days lisinopril 10 mg PO DAILY 90 days lorazepam 0.5 mg PO DAILY PRN 1 month metoprolol tartrate 25 mg PO BID 90 days semaglutide (weight loss) 1 mg (0.5 mL) subcut QWEEK 28 days tramadol 2 in the am,1 in the pm, 2 in evening as needed; 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 She was seen in consultation regarding palpitations and workup had shown PVCs. Some days she has palpitations more than other days but she also has lot of anxiety as well. Quite tearful today. No known coronary disease. No other prior cardiac history. Has been trying to lose weight using semaglutide. Since last seen, she states that she has had good days and bad days. Some days more palpitations than the others. 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 Current occupational exposures/hazards: No Cognitive needs: No Hearing needs: No Vision needs: Yes (Glasses) Review of Systems Const Denies chills, Denies fatigue, Denies fever(s), Denies frequent falls, Denies weakness, Denies weight gain and Denies weight loss ENT Denies dizziness Card Denies chest pain, Denies leg edema, Denies lightheadedness, Denies palpitations, Denies dyspnea and Denies dyspnea on exertion Resp Denies cough, Denies dyspnea and Denies dyspnea on exertion GI Denies hematochezia Musc Denies abnormal gait, Denies muscle weakness, Denies numbness, Denies radiating pain into limb and Denies tingling Neuro Denies abnormal gait, Denies dizziness, Denies frequent falls, Denies numbness, Denies tingling and Denies weakness Endo Denies fatigue and Denies palpitations Physical Exam Vital Signs: Last Vital Signs Pulse 93 11/10/24 12:35 BP 120/62 11/10/24 12:35 BMI result Body Mass Index 28.6 Const General: comfortable and no acute distress Orientation/consciousness: patient oriented x3 HEENT Other: Unremarkable Head: Yes normal to inspection Neck Neck: Yes normal visual inspection Chest Chest palpation & inspection: normal inspection of the chest Resp Auscultation: clear to auscultation bilaterally Cardio Palpation: normal PMI Heart sounds: S1 normal heart sound present, S2 normal heart sound present, no gallops, no murmurs and no rubs GI Palpation (GI): Soft to palpation Back/Spine/Pelvis Other: unremarkable Skin General skin exam: no rashes or lesions noted Neuro General: patient oriented x3 Extrem General: Yes normal to inspection Psych Mental Status: mental status grossly normal Assessment & Plan Assessment & Plan (1) PVCs (premature ventricular contractions): Code(s): I49.3 - Ventricular premature depolarization Category: Medical (2) Essential hypertension: Code(s): I10 - Essential (primary) hypertension Category: Medical Plan Cardiac studies reviewed. In the Holter, underlying rhythm is sinus with an average rate of 71/Min. Frequent PVCs with a burden of 10%. Prior to that, PVC burden was 12%. Echocardiogram with LVEF of 56%; normal diastolic function and otherwise un remarkable. In the cardiac MRI, normal LV size with an LVEF of 60%. Intramural delayed enhancement in the basal inferolateral wall suggesting nonischemic cardiomyopathy, possible fibrosis extra. RVEF 56%. In the ETT, no EKG evidence of ischemia and no angina. PVCs seem to improve with exercise which is a good prognostic marker. In the home sleep study, reported have no sleep apnea but severe snoring. It was recommended for her to have a in-lab study. Patient however states that she barely slept because of her cat. Discussed about PVCs, pathophysiology, treatment options extra. She does not have any syncope or high-risk markers. Pathophysiology of PVCs discussed. She has reasonable burden of PVCs but not profound. No syncope and no high-risk markers. She can continue the beta-blockers as they seem to help. If indeed she feels more palpitations, can go up on the dose. In that case, may have to decrease the lisinopril dosing. For completion of workup, also do a cardiac PET scan. Otherwise, reassured her as much. Follow up in 6 months with another Holter monitor. She will keep us posted with any new concerns. Discussion Notes I discussed with the patient that the PVCs are likely related to a small myocardial scar, possibly from a past infection or myocarditis. We reviewed the importance of monitoring the PVCs and the role of metoprolol in managing symptoms. I explained that a PET scan will help determine if there is any ongoing inflammation. The patient was advised to maintain her current level of physical activity and to follow up with cardiology for further evaluation. Patient was informed and verbally consented to the use of an ambient scribe for clinic note documentation during this visit. Orders: Orders PET Cardiac Today I49.3 - Ventricular premature depolarization ECG 3 day holter monitor 5 Months I49.3 - Ventricular premature depolarization Patient Instructions: - Continue taking metoprolol as prescribed, and increase the dose if pa lpitations worsen. - Monitor blood pressure regularly, especially if increasing metoprolol dose. - Maintain current level of physical activity. - Follow up with cardiology as scheduled. Coding Level of Care Code Est Pt Level 4 (21685) Complex EM visit Add On G2211 Diagnoses PVCs (premature ventricular contractions) I49.3 Essential hypertension I10
[2024-11-10 12:35] VITALS: BP 120/62; PULSE 93; BMI 28.6
--- OUTSIDE RECORDS SUMMARY | 2024-11-10 13:18 | XMS_ITS | Clinical Summary ---
Author Organization [employer] Address [address] [place] [address] Care Team Providers Care Waiter/Waitress Third Class Name Role Phone Unavailable Primary Care Provider [...] patient's age to complete this topic Insurance [facility] [place] [phone]
== END 2024-11-10 12:59 | disposition home or self-care (01) ==
LOC: HO.HCS 12:20
PROVIDERS: PCP Family Medicine; Visit Provider Internal Medicine
DX: I49.3 Ventricular premature depolarization (principal); I10 Essential (primary) hypertension
CPT/HCPCS: 99214; G2211

== ENCOUNTER → 2024-12-22 10:48 | Outpatient (BNV) | payer OTHER, SELFPAY | PROVIDERS: PCP Family Medicine; Visit Provider Radiology Diagnostic Radiology | DX: K76.9 Liver disease, unspecified (principal) | CPT/HCPCS: 74183 ==

== ENCOUNTER 2024-12-22 10:50 | Outpatient (REF) | payer OTHER, SELFPAY ==
--- NOTE | ~2024-12-22 | MR_ITS ---
EXAMINATION: MR ABDOMEN WITHOUT AND WITH CONTRAST CLINICAL INFORMATION: K 76.9. Liver disease, unspecified. COMPARISON: Correlated to ultrasound dated May 24, 2020 and September 13, 2016. TECHNIQUE: MR abdomen was performed without and with use of 7.0 mL intravenous (Gadavist) gadolinium contrast. Postcontrast images are performed in multiphase dynamic sequences. Imaging was performed in 3 planes. No reported immediate complications. FINDINGS: LUNG BASES: No enhancing lesion. LIVER, GALLBLADDER, AND BILIARY TREE: Liver measures 15 cm in maximum dimension. There is a 2 cm lobulated, hypointense T1 and hyperintense T2, peripheral discontinuous centripetal enhancing lesion in the anterior aspect of the right hepatic lobe adjacent to the falciform ligament. There is restricted diffusion within this lesion. There are 3, less than 0.7 cm hyperintense T2 and peripheral discontinuous enhancing lesions in the left hepatic lobe with homogeneous enhancement on the delayed sequences. There is a 5 mm hyperintense T2 lesion in the right hepatic lobe with homogeneous enhancement on the delayed phase. Main portal vein, hepatic veins and intrahepatic portion of the IVC are patent. Multiple small layering isointense T2 nonenhancing lesions in the gallbladder. No pericholecystic fluid collection or gallbladder wall thickening. Common bile duct measures 3 mm in maximum dimension. PANCREAS: No focal mass. No peripancreatic fluid collection. Main pancreatic duct measures 2 mm. SPLEEN: 9 cm. No focal mass. ADRENAL GLANDS: No nodular lesions. KIDNEYS AND URETERS: Normal enhancement pattern of the renal parenchyma. No mass. No hydronephrosis. GASTROINTESTINAL TRACT: Abundant stool, large intestine. Small hiatal hernia.. ABDOMINAL WALL: Small tiny fat-containing umbilical hernia. LYMPH NODES: No gross mesenteric or retroperitoneal lymphadenopathy. VASCULAR: No aneurysm or dissection, abdominal aorta. No gross focal stenosis in the aorta. OSSEOUS STRUCTURES: Multilevel thoracolumbar spondylosis pronounced at T11-T12. Grade 1 anterolisthesis L4-5. Multiple probably partially calcified uterine fibroids, the largest measures 4 cm. MR/MR abdomen wo/w con IMPRESSION: Hemangiomata, hepatic. Cholelithiasis. Leiomyomata uterine Small fat-containing umbilical hernia. Small hiatal hernia. Multilevel spondylosis and grade 1 anterolisthesis L4-5.. Electronically signed by: Antonio Wheeler MD 12/22/2024 12:12 PM EDT RP
--- OUTSIDE RECORDS SUMMARY | 2024-12-22 12:00 | XMS_ITS | Clinical Summary ---
Author Organization [employer] Address [address] [place] [address] Care Team Providers Care Drum Sealer Name Role Phone Unavailable Primary Care Provider [...] 2024 04/25/2021, 08/24/2020, 07/30/2020 Influenza Vaccine (#1) 2025 , 02/13/2021 RSV Patients and Patients Aged [...] patient's age to complete this topic Insurance [facility] [place] [place] [phone]
== END 2024-12-22 10:51 | disposition home or self-care (01) ==
LOC: HO.MRI 10:50
PROVIDERS: PCP Family Medicine; Visit Provider Family Medicine
DX: K76.9 Liver disease, unspecified (principal)
CPT/HCPCS: 74183; A9585

== ENCOUNTER 2025-01-25 13:41 | Outpatient (AMB) | payer OTHER, SELFPAY ==
[2025-01-25 13:50] VITALS: BP 128/90; PULSE 61; O2SAT 98; BMI 27.3
--- NOTE | 2025-01-25 13:50 | A.OFFPC_ITS ---
Vital Signs 01/25/25 13:50 01/25/25 14:25 Height 5 ft 4 in Weight 159 lb 4 oz BMI 27.3 BP 128/90 H 128/78 Blood Pressure Location Rt brachial Rt radial Position Sitting Sitting Pulse 61 Pulse Source Pulse Oximeter Pulse Oximetry (%) 98 Oxygen Delivery Method Room Air Intake Visit Reasons: MRI Follow-up Accompanied by: Significant Other Allergies penicillin V Allergy (Unknown, Verified 01/25/25 13:54) Swelling difficulty breathing Sulfa (Sulfonamide Antibiotics) Allergy (Unknown, Verified 01/25/25 13:54) Rash itchininess Medication List - Last Reconciled 01/25/25 by Zia Serrano MD aspirin 81 mg PO DAILY buspirone 15 mg PO BID 90 days cholecalciferol (vitamin D3) 25 mcg PO DAILY diclofenac sodium 1% 4 grams topical QID 30 days gabapentin 600mg (2 tabs) in AM and 600mg (2tabs) in PM orally 2 times a day; 30 days ibuprofen 600 mg (30 mL) PO Q8H 30 days lidocaine 5% 1 ea topical BID 30 days lisinopril 10 mg PO DAILY 90 days lorazepam 0.5 mg PO DAILY PRN 1 month metoprolol tartrate 25 mg PO BID 90 days semaglutide (weight loss) 1 mg (0.5 mL) subcut QWEEK 28 days tramadol 2 in the am,1 in the pm, 2 in evening as needed; ok for fruit picker on 09/06/22 28 days Tobacco use date assessed: 01/25/25 Dental Screening Dental Screen Date: 01/25/25 Did you have a dental visit in the last 12 months?: Yes Did you have a dental problem in the last 6 months where you did not have access to dental care?: No Was dental information given to patient?: Patient has dentist HPI MRI Follow-up HPI Details 54 y/o female presents to f/u MRI of josé er. MRI 12/22/24 showed: Hemangiomata, hepatic. Cholelithiasis. Leiomyomata uterine Small fat-containing umbilical hernia. Small hiatal hernia. Multilevel spondylosis and grade 1 anterolisthesis L4-5.. Has been doing well with her weight loss. 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 1. Little interest or pleasure in doing things: not at all 2. Feeling down, depressed, or hopeless: not at all 3. Trouble falling or staying asleep, or sleeping too much: not at all 4. Feeling tired or having little energy: not at all 5. Poor appetite or overeating: not at all 6. Feeling bad about yourself - or that you are a failure or have let yourself or your family down: not at all 7. Trouble concentrating on things, such as reading the newspaper or watching television: not at all 8. Moving or speaking so slowly that other people could have noticed. Or the opposite - being so fidgety or restless that you have been moving around a lot more than usual: not at all 9. Thoughts that you would be better off or of hurting yourself in some way: not at all Total score: 0 Depression Screening Interpretation: Negative Depression Screening Done: Yes Source: Developed by Drs. Marcos Leyva, Shefali Storm, Carmine Contreras and colleagues, with an educational geronimo from [employer], IP. Thrive Questionnaire Date Thrive assessed: 05/20/24 I am a: Patient What is your living situation today?: I have a steady place to live Within the past 12 months, did the food you bought not last and you didn't have the money to get more?: Never true Within the past 12 months, did you worry whether your food would run out before you got money to buy more?: Never true Do you have trouble paying for medicines?: No Do you have trouble getting transportation to medical appointments?: No Do you have trouble paying your heating and electricity bill?: No Do you have trouble taking care of your child, family member or friend?: No Do you have trouble with day-to-day activities such as bathing, preparing meals, shopping, managing finances, etc.?: No Are you currently unemployed and looking for a job?: No Are you interested in more education?: No Please select the resources that you would like help with: None Currently or been in a relationship where the following occur: No concerns reported THRIVE Score: 0 AUDIT C Alcohol Use Questionnaire (AUDIT-C) 1. How often do you have a drink containing alcohol?: Never 3. How often do you have six or more drinks on one occasion?: Never Total Score: 0 DEBORAH-7 AMB Questionnaire DEBORAH-7 Date DEBORAH - 7 assessed: 05/20/24 Feeling nervous, anxious, or on edge: 0 = Not at all Not being able to stop or control worryin = Not at all Worrying too much about different things: 0 = Not at all Trouble relaxin = Not at all Being so restless that it is hard to sit still: 0 = Not at all Becoming easily annoyed or irritable: 0 = Not at all Feeling afraid as if something awful might happen: 0 = Not at all Total DEBORAH-7 score (0-4 normal; 5-9 mild; 10-14 moderate; 15-21 severe): 0 Source: Developed by Drs. Marcos Leyva, Shefali Storm, Carmine Contreras and colleagues, with an educational geronimo from [employer], IP. Review of Systems Const Denies chills, Denies fatigue, Denies fever(s), Denies headache(s) and Denies weakness ENT Denies dizziness and Denies headache(s) Card Denies dyspnea Resp Denies cough, Denies dyspnea, Denies wheezing and Denies other (shortness of breath) Musc Denies numbness and Denies tingling Neuro Denies dizziness, Denies headache(s), Denies numbness, Denies tingling and Denies weakness Psych Denies anxiety and Denies depression Endo Denies fatigue Aller/Immun Denies wheezing Physical exam (Primary Care) Vital Signs: Last Vital Signs Pulse 61 01/25/25 13:50 BP 128/90 H 01/25/25 13:50 Pulse Ox 98 01/25/25 13:50 Oxygen Delivery Method Room Air 01/25/25 13:50 BMI result Body Mass Index 27.3 Tobacco/Smoking Status: Tobacco use Status Tobacco use date assessed 01/25/25 01/25/25 13:56 Patient Tobacco Use Status Former Tobacco user 01/25/25 13:56 Tobacco use type Cigarette 01/25/25 13:56 e-Cigarette/Vaping Use Never Used 01/25/25 13:56 PHQ-9: PHQ-9 Score PHQ-9: Total score 0 01/25/25 14:01 Depression Screening Interpretation: Negative Thrive Assessment: Date of Thrive Assessment Date Thrive assessed 05/20/24 01/25/25 13:56 Currently or been in a relationship where the following occur: No concerns reported Const General: well developed; No acute distress Nutritional Appearance: well nourished Orientation/consciousness: patient oriented x3 HENMT Head: Yes normocephalic and Yes atraumatic Eyes General: appearance normal, both eyes and all related structures Pupils: Equal, round and reactive pupils present EOM: EOMs intact bilaterally Resp Effort & Inspection: normal respiratory effort Auscultation: clear to auscultation bilaterally Cardio Rate: regular rate Rhythm: regular rhythm Heart sounds: S1 normal heart sound present, S2 normal heart sound present, no gallops, no murmurs and no rubs Neuro General: patient oriented x3 and gait normal Cranial nerves: Yes Equal, round and reactive pupils present Psych Affect: normal affect Coding Level of Care Code Est Pt Level 4 (28319) Diagnoses Hemangioma of liver D18.03 Umbilical hernia K42.9 Hiatal hernia K44.9 Essential hypertension I10 Assessment & Plan Assessment & Plan (1) Hemangioma of liver: Code(s): D18.03 - Hemangioma of intra-abdominal structures Category: Medical Plan: Several hepatic hemangiomata Discussed with patient-benign We can monitor (2) Umbilical hernia: Code(s): K42.9 - Umbilical hernia without obstruction or gangrene Category: Medical Plan: Small fat containing umbilical hernia soon on MRI Self reducing by Valsalva with palpation. Watch for any worsening pain or other symptoms such as nausea vomiting fever chills Currently rather small and doubt is needs repair She will let know if any the above changes and we will investigate further or refer her to surgery (3) Hiatal hernia: Code(s): K44.9 - Diaphragmatic hernia without obstruction or gangrene Category: Medical Plan: Mild hiatal hernia Asymptomatic (4) Essential hypertension: Code(s): I10 - Essential (primary) hypertension Category: Medical Plan: Blood pressure is controlled. Goal is less than 130/80 Continue current medication Plan Being followed by Cardiology and has an upcoming appointment. Had recent PET scan which showed no active inflammation of the heart. Follow-up with Cardiology
[2025-01-25 14:25] VITALS: BP 128/78
--- OUTSIDE RECORDS SUMMARY | 2025-01-25 18:58 | XMS_ITS | Clinical Summary ---
Author Organization [employer] Address [address] [place] [address] Care Team Providers Care Computer Typesetter Name Role Phone Unavailable Primary Care Provider [...] of 2) 07/17/2021 COVID-19 Vaccine (4 - 2024-2 6 season) 2025 04/25/2021, 08/24/2020, 07/30/2020 Influenza Vaccine (#1) 2025 2, 02/13/2021 RSV Patients and Patients Aged 60 [...] patient's age to complete this topic Insurance [facility] [place] [id number]
--- OUTSIDE RECORDS SUMMARY | 2025-01-25 18:59 | XMS_ITS | Clinical Summary ---
Author Organization [facility] Address [address] [place] [phone] Phone Care Team Providers Care Software Technical Lead Name Role Phone Zia Serrano MD Primary Care Provider Allergies Active Allergy Reactions Criticality Noted Date Comments Sulfamethoxazole-Trimethoprim Swelling 2016 sulfa Penicillins 10/28/2018 Medications lisinopril (PRINIVIL,ZESTR IL) 10 MG tablet Take 10 mg by mouth daily. Active metoprolol tartrate (LOPRESSOR) 25 MG tablet Take 25 mg by mouth 2 (two) times a day. Active LORazepam (ATIVAN) 0.5 MG tablet TK 1 T PO ONCE A DAY PRN FOR ANXIETY 0 10/24/2018 Active traMADol (ULTRAM) 50 mg tablet TK 2 TS PO BID 2 10/07/2018 Active busPIRone (BUSPAR) 15 MG tablet TK 1 T PO BID 02/11/2020 Active BLACK COHOSH ORAL Take by mouth. Active ECHINACEA 1X ORAL Take by mouth. Active EVENING PRIMROSE OIL ORAL Take by mouth. Active cholecalciferol (VITAMIN D3) 5,000 unit tablet Take 1,000 Units by mouth daily. Active Immunizations Immunization Administration Dates Next Due COVID-19 (Pre-03/04) Pfizer Vaccine, mRNA, PF 04/25/2021,08/24/2020,07/30/2020 Influenza Quadrivalent Preservative Free IM 10/09/2022,02/16/2022,02/13/2021 Family History Medical History Relation Comments No Known Problems Brother Hodgkins lymphoma Father Lung cancer Father 2016 - dx after persistent cough 2 days before he Sarcoma Father abdomen- was can cer free after surg and chemo Hypertension Mother PT NOT IN TOUCH Collagen disease Paternal Grandfather Colon cancer Paternal Grandfather Hodgkins lymphoma Sister 1 not in touch Ovarian cancer Sister 1 ?ovarian cancer. doing well until dx with Corina's 2018 Asthma Sister 2 Relation Status Comments Brother Alive Father Maternal Grandfather Maternal Grandmother Mother Alive Paternal Grandfather Paternal Grandmother Sister 1 Alive Sister 2 Alive Social History Tobacco Use Types Packs/Day Years Used Date Smoking Tobacco: Never Smokeless Tobacco: Never Alcohol Use Standard Drinks/Week Comments No 0 (1 standard drink = 0.6 oz pur e alcohol) Education Answer Date Recorded Are you interested in more education? Not on kathleen e 09/07/2022 Are you concerned about learning? Not on file 09/07/2022 No 09/07/2022 No 09/07/2022 Digital Access Answer Date Recorded No 10/08/2022 No 10/08/2022 No 10/08/2022 Reliable internet access at home? Not on file 10/08/2022 Device with a working camera? 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 Not on f ile Not on file Last Filed Vital Signs Vital Sign Reading Time Taken Comments Blood Pressure 130/60 08/21/2024 11:06 AM EDT Pulse 74 05/16/2020 1:36 PM EST Temperature 36.3 C (97.3 F) 05/16/2020 1:36 PM EST Respiratory Rate 16 05/16/2020 1:36 PM EST Oxygen Saturation 98% 05/16/2020 1:36 PM EST Inhaled Oxygen Concentration - - Weight 74.8 kg (165 lb) 05/16/2020 1:36 PM EST Height 162.6 cm (5' 4 ) 05/16/2020 1:36 PM EST Body Mass Index 28.32 05/16/2020 1:36 PM EST Plan of Treatment Health Maintenance Due Date Last Done Comments Adult Td,Tdap Booster 1971 BLOOD PRESSURE 1971 DEPRESSION SCREENING 1983 PAP SMEAR 07/17/1992 COLOGUARD 07/17/2016 COLONOSCOPY 07/17/2016 COLORECTAL CANCER SCREENING 07/17/2016 FIT TEST 07/17/2016 FOBT 07/17/2016 SIGMOIDOSCOPY 07/17/2016 VIRTUAL COLONOSCOPY 07/17/2016 PNEUMOCOCCAL VACCINES (50+ years) (1 of 1 - PCV) 07/17/2021 ZOSTER VACCINES (1 of 2) 07/17/2021 MAMMOGRAM 01/04/2022 01/05/2020, 08/19/2018 INFLUENZA VACCINE (#1) 2024 3, 02/16/2022, 02/13/2021, Additional history exists COVID-19 VACCINE ( season) 2025 04/25/2021, 08/24/2020, 07/30/2020 CREATININE LEVEL 07/22/2025 07/22/2024, 10/2024, 06/04/2023 POTASSIUM LEVEL 07/22/2025 07/22/2024, 01/0 10/2024, 06/04/2023 LIPID PANEL 07/22/2029 07/22/2024, 01/0 10/2024, 06/04/2023 HEPATITIS C SCREENING Completed 02/05/2020 HIV ONE-TIME SCREENING (18-65 YEARS) Completed 02/05/2020 SMOKING STATUS SCREENING (Once After 26 Yrs) Completed 05/16/2020 HEPATITIS A VACCINES Aged Out No long er eligible based on patient's age to complete this topic HIB VACCINES Aged Out No longer eligi ble based on patient's age to complete this topic MENINGOCOCCAL VACCINES (ACWY) Aged Out No longer eligible based on patient's age to complete this topic MENINGOCOCCAL VACCINES (B) Aged Out N o longer eligible based on patient's age to complete this topic Medical Devices Not on file Procedures Procedure Name Priority Date/Time Associated Diagnosis Comments LIPID PANEL Routine 07/22/2024 12:12 PM EDT Essential hypertension, malignant General medical exam COMPREHENSIVE METABOLIC PANEL Routine 07/22/2024 12:12 PM EDT Essential hypertension, malignant General medical exam HEPATITIS C ANTIBODY, QUALITATIVE STAT 02/05/2020 12:38 PM EDT Exposure to blood or body fluid HM MAMMOGRAPHY Routine 01/05/2020 from Last 3 Months or Most Recently Relevant to Health Maintenance Results * (ABNORMAL) Comprehensive metabolic panel (07/22/2024 12:12 PM EDT) SODIUM 141 133 - 146 mmol/L [facility] POTASSIUM 4.3 3.3 - 5.1 mmol/L [facility] CHLORIDE 101 96 - 108 mmol/L [facility] CO2 30 21 - 35 mmol/L [facility] BUN 11 6 - 19 mg/dL [facility] CREATININE 0.60 0.5 - 1.5 mg/dL [facility] GLUCOSE 88 70 - 99 mg/dL [facility] ALBUMIN 4.8 3.9 - 4.8 g/dL [facility] TOTAL PROTEIN 7.4 6.5 - 8.0 g/dL [facility] CALCIUM 9.6 8.4 - 10.3 mg/dL [facility] ALKALINE PHOSPHATASE 99 39 - 117 U/L [facility] TOTAL BILIRUBIN 0.4 0.0 - 1.2 mg/dL [facility] AST 43(H) 0 - 37 U/L [facility] ALT 51(H) 0 - 40 U/L [facility] GLOBULIN 2.6 1 - 4.8 g/dL [facility] EGFR 107 >59 mL/min/1.7 3m2 [facility] Comment:Estimated glomerular filtration rate calculated using the CKD-EPI refit equation. ANION GAP 14 10 - 20 mmol/L [facility] Blood 07/22/2024 12:1 2 PM EDT 07/22/2024 12:17 PM EDT us Zia Serrano MD LAB BLOOD ORDERABLES Fi nal Result [facility] [address] [place] [address] * (ABNORMAL) Lipid panel (07/22/2024 12:12 PM EDT) HDL 82 mg/dL [facility] Comment: Interpretation <40 mg/dL: Low HDL cholesterol (major risk factor for CHD) Greater than or equal to 60 mg/dL: High HDL cholesterol ( negative risk factor for CHD) HDL - cholesterol is affected by a number of factors, e.g. smoking, excerise, hormones, sex and age. CHOLESTEROL 224 0 - 240 mg/dL [facility] TRIGLYCERIDES 69 30 - 160 mg/dL [facility] LDL 128 50 - 129 mg/dL [facility] Comment: LDL levels in terms of risk for coronary heart disease: <100 mg/dL: Optimal 100-129 mg/dL: Near or above optimal 130-159 mg/dL: Borderline high 160-189 mg/dL: High >190 mg/dL: Very High CARDIAC RISK RATIO 2.7(L) 3.3 - 4.4 C [facility] Blood 07/22/2024 12:1 2 PM EDT 07/22/2024 12:17 PM EDT us Zia Serrano MD LAB BLOOD ORDERABLES Fi nal Result Performing Organization Address [facility]/State/ZIP Co de Phone Number [address] [address] * Hepatitis C antibody, qualitative (02/05/2020 12:38 PM EDT) HCV NON-REACTIV E NON-REACTI VE [facility] Blood 02/05/2020 12:3 8 PM EDT 02/05/2020 2:37 PM EDT us Eris Freedman NP LAB BLOOD ORDERABLES Final Result Performing Organization Address [facility] Co de Phone Number [address] [address] * HM MAMMOGRAPHY FOR RESULT ENTRY ONLY (01/05/2020) us Avril Pruitt MD HEALTH MAINTENANCE F inal Result from Last 3 Months or Most Recently Relevant to Health Maintenance Insurance [employer] FAMILY [employer] FAMILY Member Subscriber Plan / Payer ( fective 2018-Present) Name:Fatou Brunner Relation to Subscriber:Self Name:JohnFatou mendoza Payer ID:[id number] (NAIC) Group ID:Not on file Type:PPO Address: [employer] CLAIMS [address] [place] HIGH MD [employer] FAMILY [employer] FAMILY [employer] FAM[employer] FAMILY [employer] FAMILY [employer] FAMILY [employer] FAMILY [facility] Advance Directives For more information, please contact: [phone] (9AM - 5PM [facility], Saturday-Saturday) Documents on File Type Date Recorded 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 It is not the complete legal health record.[facility]
== END 2025-01-25 14:21 | disposition home or self-care (01) ==
LOC: HO.HMCFM 13:42
PROVIDERS: PCP Family Medicine; Visit Provider Family Medicine
DX: D18.03 Hemangioma of intra-abdominal structures (principal); K42.9 Umbilical hernia without obstruction or gangrene; K44.9 Diaphragmatic hernia without obstruction or gangrene; I10 Essential (primary) hypertension

== ENCOUNTER → 2025-04-12 07:33 | Outpatient (REF) | payer OTHER, SELFPAY ==
--- OUTSIDE RECORDS SUMMARY | 2025-04-12 07:35 | XMS_ITS | Continuity of Care Document ---
Author Organization [place] - [facility], [facility] Address [address] [place] [address] Care Team Providers Care Sizer Hand Name Role Phone HEATHER AGUILERA Primary Care Provider [phone] Assessment No assessment recorded. Plan of Treatment Reminders Order Date Submit Date Provider Last Modified By Organization Details Last Modified Time Details Appointments Hearing Test Same Day (First) 2025 03:00P M Hearing Test Not available Not available Not available Establish ed 30 2025 03:30P M JAMES Earl MD Not available Not available Not available Lab None recorded. Referral None recorded. Procedures None recorded. Surgeries None recorded. Imaging None recorded. Medication Orders None recorded. Patient TargetsNo targets recorded. Patient InstructionsNo instructions recorded. Reason for Referral None Reported. 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 Procedures Surgical History Date Name Laterality Status Provider Name and Address Organization Details Recorded Time arthroscopy of joint of left shoulder region completed Natty Wolf [place] - [facility] 03/01/2025 15:16:41 Imaging Results None recorded. Procedure Notes None recorded. Medical Equipment None Reported. Allergies Allergen ID Allergen Name Allergen Category Reaction Reaction Severity Criticality Documentation Date Start Date Code Code System Note Provider Name and Address Organization Details Recorded Time 758671 Substance with sulfonami de structure and antibacte rial mechanism of action (substanc e) medicatio n Not available Not available Not available 03/01/2025 79797 8003 SNOMED Natty wells [place] [facility] 15:15:46 909633 Product containin g penicilli n (product) medicatio n Not available Not available Not available 03/01/2025 34489 8001 SNSUSANNA wells [place] [facility] 15:15:56 Medications Name Sig Start Date Stop Date Status Note LastModified by Organization Details LastModified Time lorazepam 0.5 mg tablet TAKE 1 TABLET BY MOUTH DAILY NEEDED FOR ANXIETY active Not Available Not Available Not Available lisinopril 10 mg tablet TAKE 1 TABLET BY MOUTH DAILY active Not Available Not Available Not Available gabapentin 300 mg capsule TAKE 1 CAPSULE BY MOUTH EVERY MORNING AND 2 CAPSULES BY MOUTH EVERY EVENING active Not Available Not Available No t Available buspirone 15 mg tablet TAKE 1 TABLET BY MOUTH TWICE DAILY active Not Available Not Available No t Available metoprolol tartrate 25 mg tablet TAKE 1 TABLET BY MOUTH TWICE DAILY active Not Available Not Available No t Available Wegovy 1 mg/0.5 mL subcutaneous pen injector INJECT 1MG UNDER THE SKIN ONCE A WEEK FOR 28 DAYS active Not Available Not Available No t Available Wegovy 0.25 mg/0.5 mL subcutaneous pen injector INJECT 0.25MG SUBCUTANEOU SLY ONCE EVERY WEEK X28 DAYS active Not Available Not Available No t Available Wegovy 0.5 mg/0.5 mL subcutaneous pen injector INJECT 0.5MG 0.5ML) UNDER THE SKIN ONCE A WEEK FOR WEEKS 1-4 OF THERAPY active Not Available Not Available N ot Available Vitals Date Recorded Body height Body mass index (BMI) Body weight Systolic And Diastolic Provider Name and Address Organization Details Last Updated DateTime 03/01/2025 162.56 cm 26.1 kg/m2 55993.04 g 140/90 mm[Hg] Natty Luciano [place] - [facility] 03/01/2025 15:22:10 Social History None recorded. Functional Status None recorded. Mental Status None recorded. Family History Nothing Reported. Medical History Condition Response Heart Problems Y Arthritis Y Hypertension Y Gynecological HistoryNo gynecological history recorded. Obstetrics History GPAL:G 0 P 0 0 0 0 Past Encounters Encounter ID Performer Location Encounter Start Date Encounter Closed Date Diagnosis/Indication Diagnosis SNOMED-CT Code Diagnosis ICD10 Code Diagnosis IMO Codes Diagnosis Note [id number] JAMES MAYNARD MD [facility] on [address] [place] [address] 03/01/2025 14:38:56 03/01/2025 15:38:14 Benign neoplasm of palate 38191016 D10.39 761908 On exam I noted a 1mm bump on right soft palate. This is a benign appearance . I recommend observatio n. Will recheck at next visit. Sensorineu ral hearing loss of bilateral ears 137302280 H90.3 859520 suspected. planning audio at next visit. Health Concerns Section Related Observation LastModified by Organization Detai ls LastModified Time None Recorded Concern Status LastModified by Organization Details LastModified Time None Recorded Payers Encounter Date Sequence Insurance Name Policy Number Policy Alatorre Covered Member ID Alatorre Member ID Guarantor Name 03/01/2025 1 [facility] Fatou Brunner [id number] Fatou Brunner Notes Date Note Type Note Provider Name and Address Organization Details Recorded Time 03/01/2025 text/html ROS as noted in the HPI She saw her dentist for a routine visit in July who noted a tonsil lesion. 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 She had 2 rounds of amox which did seem to decrease the size (prescribed by PCP). No throat pain. Smoked in her 20s. No dysphagia. JAMES MAYNARD MD [address] [place] [address], [place], [address], [place] - [facility] 03/01/2025 15:40:36 OBGyn Episode No OBEpisode recorded.
--- OUTSIDE RECORDS SUMMARY | 2025-04-12 07:35 | XMS_ITS | Clinical Summary ---
Author Organization [employer] Address [address] [place] [address] Care Team Providers Care Intranet Support Name Role Phone Unavailable Primary Care Provider [...] patient's age to complete this topic Insurance [facility] [place] [id number]
--- OUTSIDE RECORDS SUMMARY | 2025-04-12 07:36 | XMS_ITS | Clinical Summary ---
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 Not on [...] of 2) 07/17/2021 MAMMOGRAM 01/04/2022 01/05/2020, 08/19/2018 COVID-19 VACCINE ( season) 2025 04/25/2021, 08/24/2020, 07/30/2020 CREATININE LEVEL 07/22/2025 07/22/2024, 10/2024, 06/04/2023 POTASSIUM LEVEL 07/22/2025 07/22/2024, 01/0 10/2024, 06/04/2023 LIPID PANEL 07/22/2029 07/22/2024, 01/0 10/2024, 06/04/2023 RSV VACCINE (1 - 1-dose 75+ series) 07/17/2046 HEPATITIS C SCREENING Completed 02/05/2020 HIV ONE-TIME SCREENING (18-65 YEARS) Completed 02/05/2020 SMOKING STATUS SCREENING (Once After 26 Yrs) Completed 05/16/2020 INFLUENZA VACCINE Completed 02/11/2025, , 02/16/2022, Additional history exists HEPATITIS A VACCINES Aged Out No long [...] malignant General medical exam COMPREHENSIVE METABOLIC PANEL (CMP) Routine 07/22/2024 12:12 PM EDT Essential hypertension, malignant General medical exam HEPATITIS C ANTIBODY, QUALITATIVE STAT 02/05/2020 12:38 PM EDT Exposure to blood or body fluid HM MAMMOGRAPHY Routine 01/05/2020 from Last 3 Months or Most Recently Relevant to Health Maintenance Results * (ABNORMAL) Comprehensive metabolic panel (07/22/2024 12:12 PM EDT) SODIUM 141 133 - 146 mmol/L [facility] POTASSIUM 4.3 3.3 - 5.1 mmol/L [facility] CHLORIDE 101 96 - 108 mmol/L [facility] CO2 30 21 - 35 mmol/L [facility] BUN 11 6 - 19 mg/dL [facility] CREATININE 0.60 0.5 - 1.5 mg/dL [facility] GLUCOSE 88 70 - 99 mg/dL [facility] ALBUMIN 4.8 3.9 - 4.8 g/dL [facility] TOTAL PROTEIN 7.4 6.5 - 8.0 g/dL [facility] CALCIUM 9.6 8.4 - 10.3 mg/dL [facility] ALKALINE PHOSPHATASE 99 39 - 117 U/L [facility] TOTAL BILIRUBIN 0.4 0.0 - 1.2 mg/dL [facility] AST 43(H) 0 - 37 U/L [facility] ALT 51(H) 0 - 40 U/L [facility] GLOBULIN 2.6 1 - 4.8 g/dL [facility] EGFR 107 >59 mL/min/1.7 3m2 [facility] Comment:Estimated glomerular filtration rate calculated using the CKD-EPI refit equation. ANION GAP 14 10 - 20 mmol/L [facility] Blood 07/22/2024 12:1 2 PM EDT 07/22/2024 12:17 PM EDT us Zia Serrano MD LAB BLOOD BKR ORDERABLE S Final Result [facility] [address] [place] [address] * (ABNORMAL) Lipid panel (07/22/2024 12:12 PM EDT) HDL 82 mg/dL [facility] Comment: Interpretation <40 mg/dL: Low HDL cholesterol (major risk factor for CHD) Greater than or equal to 60 mg/dL: High HDL cholesterol ( negative risk factor for CHD) HDL - cholesterol is affected by a number of factors, e.g. smoking, excerise, hormones, sex and age. CHOLESTEROL 224 0 - 240 mg/dL [facility] TRIGLYCERIDES 69 30 - 160 mg/dL [facility] LDL 128 50 - 129 mg/dL [facility] Comment: LDL levels in terms of risk for coronary heart disease: <100 mg/dL: Optimal 100-129 mg/dL: Near or above optimal 130-159 mg/dL: Borderline high 160-189 mg/dL: High >190 mg/dL: Very High CARDIAC RISK RATIO 2.7(L) 3.3 - 4.4 C [facility] Blood 07/22/2024 12:1 2 PM EDT 07/22/2024 12:17 PM EDT us Zia Serrano MD LAB BLOOD BKR ORDERABLE S Final Result [address] [address] * Hepatitis C antibody, qualitative (02/05/2020 12:38 PM EDT) HCV NON-REACTIV E NON-REACTI VE [facility] Blood 02/05/2020 12:3 8 PM EDT 02/05/2020 2:37 PM EDT us Eris Freedman NP LAB BLOOD BKR ORDERABLES F inal Result [address] [address] * HM MAMMOGRAPHY FOR RESULT ENTRY ONLY (01/05/2020) us Avril Pruitt MD HEALTH MAINTENANCE F inal Result from Last 3 Months or Most Recently Relevant to Health Maintenance Insurance [facility] [facility] [employer] FAMILY [employer] [facility] [employer] FAMILY [employer] [facility] [facility] [employer] FAMILY Member Subscriber Plan / Payer ( fective 2018-Present) Name:Fatou Brunner. Relation to Subscriber:Self Name:JohnFatou mendoza Payer ID:[id number] (NAIC) Group ID:Not on file Type:PPO Address: [employer] CLAIMS [address] [place] HIGH MD [facility] [employer]ES FAMILY Member Subscriber Plan / Payer ( fective 2018-Present) Name:Fatou Brunner Relation to Subscriber:Self Name:Fatou Brunner Payer ID:[id number] (NAIC) Group ID:Not on file Type:PPO Address: [employer] CLAIMS [address] [place] HIGH MD [facility] [employer] FAMILY Member Subscriber Plan / Payer ( fective 2018-) Name:Fatou Brunner Relation to Subscriber:Self Name:Fatou Brunner Payer ID:[id number] (NAIC) Group ID:Not on file Type:PPO Address: [employer] CLAIMS [address] [place] HIGH MD [facility] [employer] FAMILY Member Subscriber Plan / Payer ( fective 2018-) Name:Fatou Brunner. Relation to Subscriber:Self Name:Fatou Brunner Petr. Payer ID:[id number] (NAIC) Group ID:Not on file Type:PPO Address: [employer] CLAIMS [address] BERONICA HIGH MD [employer] [facility] [facility] [facility] [employer] FAMILY Member Subscriber Plan / Payer ( fective 2018-Present) Name:Fatou Brunner. Relation to Subscriber:Self Name:Fatou Brunner. Payer ID:[id number] (NAIC) Group ID:Not on file Type:PPO Address: [employer] CLAIMS [address] BERONICA HIGH MD [facility] [facility] [employer] FAMILY Member Subscriber Plan / Payer ( fective 2018-Present) Name:Fatou Brunner Relation to Subscriber:Self Name:Fatou Brunner Payer ID:[id number] (NAIC) Group ID:Not on file Type:PPO Address: [employer] CLAIMS [address] BERONICA HIGH MD [facility] [facility] [employer] FAMILY Member Subscriber Plan / Payer ( fective 2018-Present) Name:Fatou Brunner. Relation to Subscriber:Self Name:Fatou Brunner. 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 It is not the complete legal health record.[facility]
--- OUTSIDE RECORDS SUMMARY | 2025-04-12 07:36 | XMS_ITS | Data Portability ---
Author Organization [place] - [facility], Allergy Address [address] [address] Care Team Providers Care Service Dismantler Name Role Phone HEATHER AGUILERA Primary Care Provider [phone] Assessment No assessment recorded. 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 15:38:36 Sensorineural hearing loss of bilateral ears 060121386 Active 2024 JAMES Earl MD [address] [address], [place], [address], [facility] - [facility] 15:39:46 Problem Notes None recorded. Procedures Surgical History Date Name Laterality Status Provider Name and Address Organization Details Recorded Time arthroscopy of joint of left shoulder region completed Natty Wolf [place] - [facility] 03/01/2025 15:16:41 Imaging Results None recorded. Procedure Notes None recorded. Medical Equipment None Reported. Allergies Allergen ID Allergen Name Allergen Category Reaction Reaction Severity Criticality Documentation Date Start Date Code Code System Note Provider Name and Address Organization Details Recorded Time 549673 Substance with sulfonami de structure and antibacte rial mechanism of action (substanc e) medicatio n Not available Not available Not available 03/01/2025 24103 8003 SNOMED Natty Hearnciteacacia i russell [facility] 15:15:46 257279 Product containin g penicilli n (product) medicatio n Not available Not available Not available 03/01/2025 00798 8001 SNOMED Natty Hearnciteacacia i russell [facility] 15:15:56 Medications Name Sig Start Date [...] Updated DateTime 03/01/2025 162.56 cm 26.1 kg/m2 31512.04 g 140/90 mm[Hg] Natty Hearnbenji [place] - [facility] 03/01/2025 15:22:10 Social History None recorded. [...] ICD10 Code Diagnosis IMO Codes Diagnosis Note [id number] JAMES MAYNARD MD [facility] on [address] [place] [address] 03/01/2025 14:38:56 03/01/2025 15:38:14 Benign neoplasm of palate 07010950 D10.39 253166 On exam I noted a 1mm bump on right soft palate. This is a benign appearance . I recommend observatio n. Will recheck at next visit. Sensorineu ral hearing loss of bilateral ears 058280372 H90.3 643971 suspected. planning audio at next visit. Health Concerns Section Related Observation LastModified by Organization Detai ls LastModified Time None Recorded Concern Status LastModified by Organization Details LastModified Time None Recorded Advance Directives Directive None Recorded Payers Insurance Date Sequence Insurance Name Policy Number Policy Alatorre Covered Member ID Alatorre Member ID Guarantor Name 03/01/2025 1 [facility] Fatou Brunner [id number] Fatou Brunner Notes Date Note Type Note [...] her 20s. No dysphagia. JAMES MAYNARD MD [address] [place] [address], [place], [address], [place] - [facility] 03/01/2025 15:40:36 OBGyn Episode No OBEpisode recorded.
== END ==
LOC: HO.CARD 07:33
PROVIDERS: PCP Family Medicine; Visit Provider Internal Medicine
DX: I49.3 Ventricular premature depolarization (principal)
CPT/HCPCS: 93242

== ENCOUNTER → 2025-04-12 07:37 | Outpatient (BNV) | payer OTHER, SELFPAY | PROVIDERS: PCP Family Medicine; Visit Provider Internal Medicine Cardiovascular Disease | DX: I49.3 Ventricular premature depolarization (principal) | CPT/HCPCS: 93244 ==

== ENCOUNTER 2025-04-27 13:44 | Outpatient (AMB) | payer OTHER, SELFPAY ==
--- NOTE | 2025-04-27 13:49 | A.OFFPC_ITS ---
Vital Signs 04/27/25 13:55 Height 5 ft 4 in Weight 151 lb 2 oz BMI 25.9 BP 110/70 Blood Pressure Location Rt brachial Position Sitting Respiration 15 Pulse 75 Pulse Source Pulse Oximeter Temp 97.7 F Temp Source Temporal Artery Scan Pulse Oximetry (%) 99 Oxygen Delivery Method Room Air Intake Visit Reasons: f/u HTN Intake Note: Fatou presents in the office today for hypertension. Storage Brine Worker Required: No Is last menstrual period known: No Post menopausal: Yes Patient : No Allergies penicillin V Allergy (Unknown, Verified 04/27/25 13:54) Swelling difficulty breathing Sulfa (Sulfonamide Antibiotics) Allergy (Unknown, Verified 04/27/25 13:54) Rash itchininess Medication List - Last Reconciled 04/27/25 by Zia Serrano MD aspirin 81 mg PO DAILY buspirone 15 mg PO BID 90 days cholecalciferol (vitamin D3) 25 mcg PO DAILY diclofenac sodium 1% 4 grams topical QID 30 days gabapentin 600mg (2 tabs) in AM and 600mg (2tabs) in PM orally 2 times a day; 30 days ibuprofen 600 mg (30 mL) PO Q8H 30 days lidocaine 5% 1 ea topical BID 30 days lisinopril 10 mg PO DAILY 90 days lorazepam 0.5 mg PO DAILY PRN 1 month metoprolol tartrate 25 mg PO BID 90 days semaglutide (weight loss) 1.7 mg (0.75 mL) subcut QWEEK 28 days tramadol 2 in the am,1 in the pm, 2 in evening as needed; 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 BP today 110/70, 75p. She is on lisinopril 10mg, metoprolol 25mg b.i.d. Pt notes she is tolerating wegovy well. 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 Current occupational exposures/hazards: No Cognitive needs: No Hearing needs: No Vision needs: Yes (Glasses) Questionnaire Thrive Questionnaire Date Thrive assessed: 05/20/24 What is your living situation today?: I have a steady place to live Within the past 12 months, did the food you bought not last and you didn't have the money to get more?: Never true Within the past 12 months, did you worry whether your food would run out before you got money to buy more?: Never true Do you have trouble paying for medicines?: No Do you have trouble getting transportation to medical appointments?: No Do you have trouble paying your heating and electricity bill?: No Do you have trouble taking care of your child, family member or friend?: No Do you have trouble with day-to-day activities such as bathing, preparing meals, shopping, managing finances, etc.?: No Are you currently unemployed and looking for a job?: No Are you interested in more education?: No Please select the resources that you would like help with: None Currently or been in a relationship where the following occur: No concerns reported THRIVE Score: 0 DEBORAH-7 AMB Questionnaire DEBORAH-7 Date DEBORAH - 7 assessed: 05/20/24 Source: Developed by Drs. Marcos Leyva, Shefali Storm, Carmine Contreras and colleagues, with an educational geronimo from [employer]. Review of Systems Const Denies chills, Denies fatigue, Denies fever(s), Denies headache(s) and Denies weakness ENT Denies dizziness and Denies headache(s) Card Denies dyspnea Resp Denies cough, Denies dyspnea, Denies wheezing and Denies other (shortness of breath) Musc Denies numbness and Denies tingling Neuro Denies dizziness, Denies headache(s), Denies numbness, Denies tingling and Denies weakness Psych Denies anxiety and Denies depression Endo Denies fatigue Aller/Immun Denies wheezing Physical exam (Primary Care) Vital Signs: Last Vital Signs Temp 97.7 F 04/27/25 13:55 Pulse 75 04/27/25 13:55 Resp 15 04/27/25 13:55 BP 110/70 04/27/25 13:55 Pulse Ox 99 04/27/25 13:55 Oxygen Delivery Method Room Air 04/27/25 13:55 BMI result Body Mass Index 25.9 Tobacco/Smoking Status: Tobacco use Status Tobacco use date assessed 01/25/25 04/27/25 13:51 Patient Tobacco Use Status Former Tobacco user 04/27/25 13:55 Tobacco use type Cigarette 04/27/25 13:55 e-Cigarette/Vaping Use Never Used 04/27/25 13:55 Thrive Assessment: Date of Thrive Assessment Date Thrive assessed 05/20/24 04/27/25 13:51 Currently or been in a relationship where the following occur: No concerns reported Const General: well developed; No acute distress Nutritional Appearance: well nourished Orientation/consciousness: patient oriented x3 HENMT Head: Yes normocephalic and Yes atraumatic Eyes General: appearance normal, both eyes and all related structures Pupils: Equal, round and reactive pupils present EOM: EOMs intact bilaterally Resp Effort & Inspection: normal respiratory effort Neuro General: patient oriented x3 and gait normal Cranial nerves: Yes Equal, round and reactive pupils present Psych Affect: normal affect Coding Level of Care Code Est Pt Level 4 (75730) Diagnoses Essential hypertension I10 PVCs (premature ventricular contractions) I49.3 Obesity E66.9 Assessment & Plan Assessment & Plan (1) Essential hypertension: Code(s): I10 - Essential (primary) hypertension Category: Medical Plan: Blood pressure is controlled. Goal is less than 140/90 Continue current medications (2) PVCs (premature ventricular contractions): Code(s): I49.3 - Ventricular premature depolarization Category: Medical Plan: Holter monitor test showed frequent PVCs Followed by cardiology Continue metoprolol Follow-up with Cardiology in May (3) Obesity: Code(s): E66.9 - Obesity, unspecified Category: Medical Plan: She continues Ozempic Continues to lose weight but notes some decrease in appetite suppression Will increase Ozempic today. 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
[2025-04-27 13:55] VITALS: BP 110/70; PULSE 75; RESP 15; TEMP 36.5; O2SAT 99; BMI 25.9
--- OUTSIDE RECORDS SUMMARY | 2025-04-27 17:53 | XMS_ITS | Data Portability ---
Author Organization [place] - [facility], Allergy Address [address] [address] Care Team Providers Care Professional Engineer Name Role Phone HEATHER AGUILERA Primary Care Provider Assessment No assessment recorded. Plan of Treatment [...] Details Recorded Time Benign neoplasm of palate 07947271 Active 2024 JAMES Earl MD [address] [address], [place], [address], [place] [facility] 15:38:36 Sensorineural hearing loss of bilateral ears 600449616 Active 2024 JAMES Earl MD [address] [address], [place], [address], [facility] - [facility] 15:39:46 Problem Notes None recorded. Procedures Surgical History Date Name Laterality Status Provider Name and Address Organization Details Recorded Time arthroscopy of joint of left shoulder region completed Natty Wolf [place] - [facility] 03/01/2025 15:16:41 Imaging Results None recorded. Procedure Notes None recorded. Medical Equipment None Reported. Allergies Allergen ID Allergen Name Allergen Category Reaction Reaction Severity Criticality Documentation Date Start Date Code Code System Note Provider Name and Address Organization Details Recorded Time 471545 Substance with sulfonami de structure and antibacte rial mechanism of action (substanc e) medicatio n Not available Not available Not available 03/01/2025 51607 8003 SNOMED Natty Hearnciteacacia i russell [facility] 15:15:46 195174 Product containin g penicilli n (product) medicatio n Not available Not available Not available 03/01/2025 72054 8001 SNOMED Natty Hearnciteacacia i russell [facility] 15:15:56 Medications Name Sig Start Date [...] Updated DateTime 03/01/2025 162.56 cm 26.1 kg/m2 11974.04 g 140/90 mm[Hg] Natty Hearnbenji [place] - [facility] 03/01/2025 15:22:10 Social History None recorded. [...] ICD10 Code Diagnosis IMO Codes Diagnosis Note [id number] JAMES MAYNARD MD [facility] on [address] [place] [address] 03/01/2025 14:38:56 03/01/2025 15:38:14 Benign neoplasm of palate 10481313 D10.39 782932 On exam I noted a 1mm bump on right soft palate. This is a benign appearance . I recommend observatio n. Will recheck at next visit. Sensorineu ral hearing loss of bilateral ears 558221297 H90.3 [id number] suspected. planning audio at next visit. Health Concerns Section Related Observation LastModified by Organization Detai ls LastModified Time None Recorded Concern Status LastModified by Organization Details LastModified Time None Recorded Advance Directives Directive None Recorded Payers Insurance Date Sequence Insurance Name Policy Number Policy Alatorre Covered Member ID Alatorre Member ID Guarantor Name 03/01/2025 1 [facility] Fatou Brunner [id number] Fatou Brunner Notes Date Note Type Note [...] her 20s. No dysphagia. JAMES MAYNARD MD [address] [place] [address], [place], [address], [place] - [facility] 03/01/2025 15:40:36 OBGyn Episode No OBEpisode recorded.
--- OUTSIDE RECORDS SUMMARY | 2025-04-27 17:53 | XMS_ITS | Continuity of Care Document ---
Author Organization [place] - [facility] [place] [facility], [facility] Address [address] [place] [address] Care Team Providers Care Boardinghouse Keeper Name Role Phone HEATHER AGUILERA Primary Care [...] Details Recorded Time Benign neoplasm of palate 89033152 Active 2024 JAMES Earl MD [address] [place] [address], [place], [address], [facility] 15:38:36 Sensorineural hearing loss of bilateral ears 866888879 Active 2024 JAMES Earl MD [address] [place] [address], [place], [address] 15:39:46 Problem Notes None recorded. Procedures Surgical History Date Name Laterality Status Provider Name and Address Organization Details Recorded Time arthroscopy of joint of left shoulder region completed Natty Wolf [place] - [facility] 03/01/2025 15:16:41 Imaging Results None recorded. Procedure Notes None recorded. Medical Equipment None Reported. Allergies Allergen ID Allergen Name Allergen Category Reaction Reaction Severity Criticality Documentation Date Start Date Code Code System Note Provider Name and Address Organization Details Recorded Time 864881 Substance with sulfonami de structure and antibacte rial mechanism of action (substanc e) medicatio n Not available Not available Not available 03/01/2025 55070 8003 SNOMED Natty wells [place] [facility] 15:15:46 657994 Product containin g penicilli n (product) medicatio n Not available Not available Not available 03/01/2025 37753 8001 SNSUSANNA wells [place] [facility] 15:15:56 Medications Name Sig Start Date [...] Updated DateTime 03/01/2025 162.56 cm 26.1 kg/m2 28640.04 g 140/90 mm[Hg] Natty Luciano [place] - [facility] 03/01/2025 15:22:10 Social History None recorded. [...] ICD10 Code Diagnosis IMO Codes Diagnosis Note [id number] JAMES MAYNARD MD [facility] on [address] [place] [address] 03/01/2025 14:38:56 03/01/2025 15:38:14 Benign neoplasm of palate 55363085 D10.39 614491 On exam I noted a 1mm bump on right soft palate. This is a benign appearance . I recommend observatio n. Will recheck at next visit. Sensorineu ral hearing loss of bilateral ears 024085779 H90.3 976549 suspected. planning audio at next visit. Health Concerns Section Related Observation LastModified by Organization Detai ls LastModified Time None Recorded Concern Status LastModified by Organization Details LastModified Time None Recorded Payers Encounter Date Sequence Insurance Name Policy Number Policy Alatorre Covered Member ID Alatorre Member ID Guarantor Name 03/01/[address] [facility] Fatou Brunner [id number] Fatou Brunner Notes Date Note Type Note [...] her 20s. No dysphagia. JAMES MAYNARD MD [address] [place] [address], [place], [address], [place] - [facility] 03/01/2025 15:40:36 OBGyn Episode No OBEpisode recorded.
--- OUTSIDE RECORDS SUMMARY | 2025-04-27 17:53 | XMS_ITS | Clinical Summary ---
Author Organization [employer] Address [address] [facility] [address] [place] [address] Care Team Providers Care Transliterator Name Role Phone Unavailable Primary Care Provider [...] patient's age to complete this topic Insurance [facility] [place] [id number]
--- OUTSIDE RECORDS SUMMARY | 2025-04-27 17:54 | XMS_ITS | Clinical Summary ---
Author Organization [facility] Address [address] [place] [address] Phone Care Team Providers Care Skiver Hand Name Role Phone Zia Serrano MD Primary [...] Industry Job Start Date Job End Date [employer] Not on file Not on [...] EDT) SODIUM 141 133 - 146 mmol/L [facility] POTASSIUM 4.3 3.3 - 5.1 mmol/L [facility] CHLORIDE 101 96 - 108 mmol/L [facility] CO2 30 21 - 35 mmol/L [facility] BUN 11 6 - 19 mg/dL [facility] CREATININE 0.60 0.5 - 1.5 mg/dL [facility] GLUCOSE 88 70 - 99 mg/dL [facility] ALBUMIN 4.8 3.9 - 4.8 g/dL [facility] TOTAL PROTEIN 7.4 6.5 - 8.0 g/dL [facility] CALCIUM 9.6 8.4 - 10.3 mg/dL [facility] ALKALINE PHOSPHATASE 99 39 - 117 U/L [facility] TOTAL BILIRUBIN 0.4 0.0 - 1.2 mg/dL [facility] AST 43(H) 0 - 37 U/L [facility] ALT 51(H) 0 - 40 U/L [facility] GLOBULIN 2.6 1 - 4.8 g/dL [facility] EGFR 107 >59 mL/min/1.7 3m2 [facility] Comment:Estimated glomerular filtration rate calculated using the CKD-EPI refit equation. ANION GAP 14 10 - 20 mmol/L [facility] Blood 07/22/2024 12:1 2 PM EDT 07/22/2024 12:17 PM EDT us Zia Serrano MD LAB BLOOD BKR ORDERABLE S Final Result [facility] [address] [place] [address] * (ABNORMAL) Lipid panel (07/22/2024 12:12 PM EDT) HDL 82 mg/dL [facility] Comment: Interpretation <40 mg/dL: Low HDL cholesterol (major risk factor for CHD) Greater than or equal to 60 mg/dL: High HDL cholesterol ( negative risk factor for CHD) HDL - cholesterol is affected by a number of factors, e.g. smoking, excerise, hormones, sex and age. CHOLESTEROL 224 0 - 240 mg/dL [facility] TRIGLYCERIDES 69 30 - 160 mg/dL [facility] LDL 128 50 - 129 mg/dL [facility] Comment: LDL levels in terms of risk for coronary heart disease: <100 mg/dL: Optimal 100-129 mg/dL: Near or above optimal 130-159 mg/dL: Borderline high 160-189 mg/dL: High >190 mg/dL: Very High CARDIAC RISK RATIO 2.7(L) 3.3 - 4.4 [facility] Blood 07/22/2024 12:1 2 PM EDT 07/22/2024 12:17 PM EDT us Zia Serrano MD LAB BLOOD BKR ORDERABLE S Final Result [address] [address] * Hepatitis C antibody, qualitative (02/05/2020 12:38 PM EDT) HCV NON-REACTIV E NON-REACTI VE [facility] Blood 02/05/2020 12:3 8 PM EDT 02/05/2020 2:37 PM EDT us Eris Freedman NP LAB BLOOD BKR ORDERABLES F inal Result [address] [address] * HM MAMMOGRAPHY FOR RESULT ENTRY ONLY (01/05/2020) us Avril Pruitt MD HEALTH MAINTENANCE F inal Result from Last 3 Months or Most Recently Relevant to Health Maintenance Insurance [employer] FAMILY [employer] FAMILY [employer] FAMILY Member Subscriber Plan / Payer ( fective 2018-Present) Name:Fatou Brunner. Relation to Subscriber:Self Name:JohnFatou mendoza Payer ID:[id number] (NAIC) Group ID:Not on file Type:PPO Address: [employer] CLAIMS [address] BERONICA HIGH MD [employer] FAMILY Member Subscriber Plan / Payer ( fective 2018-Present) Name:Fatou Brunner Relation to Subscriber:Self Name:Fatou Brunner Payer ID:[id number] (NAIC) Group ID:Not on file Type:PPO Address: [employer] CLAIMS [address] BERONICA HIGH MD [employer] FAMILY Member Subscriber Plan / Payer ( fective 2018-) Name:Fatou Brunner Relation to Subscriber:Self Name:Fatou Brunner Payer ID:[id number] (NAIC) Group ID:Not on file Type:PPO Address: [employer] CLAIMS [address] BERONICA HIGH MD [employer] FAMILY Member Subscriber Plan / Payer ( fective 2018-) Name:Fatou Brunner. Relation to Subscriber:Self Name:Fatou Brunner Petr. Payer ID:[id number] (NAIC) Group ID:Not on file Type:PPO Address: [employer] CLAIMS [address] BERONICA HIGH MD [employer] FAMILY Member Subscriber Plan / Payer ( fective 2018-Present) Name:Fatou Brunner. Relation to Subscriber:Self Name:Fatou Brunner. Payer ID:[id number] (NAIC) Group ID:Not on file Type:PPO Address: [employer] CLAIMS [address] BERONICA HIGH MD [employer] FAMILY Member Subscriber Plan / Payer ( fective 2018-Present) Name:Fatou Brunner Relation to Subscriber:Self Name:Fatou Brunner Payer ID:[id number] (NAIC) Group ID:Not on file Type:PPO Address: [employer] CLAIMS [address] BERONICA HIGH MD [employer] FAMILY Member Subscriber Plan / Payer ( fective 2018-Present) Name:Fatou Brunner. Relation to Subscriber:Self Name:Fatou Brunner. Payer ID:[id number] (NAIC) Group ID:Not on file Type:PPO Address: [employer] CLAIMS [address] BERONICA HIGH MD [facility] Advance Directives For more information, please contact: [phone] (9AM - 5PM [facility], Saturday-Saturday) Documents on File Type Date Recorded Patient Online Producer Expl anation Healthcare Proxy 09/16/2019 [employer] proxy Care Teams Skiver Hand Relationship Specialty Start Date End Date Zia Serrano MD PCP - General 09/16/19 Additional Source Comments The information contained in this document represents components of the legal health record. It is not the complete legal health record.[facility]
== END 2025-04-27 14:09 | disposition home or self-care (01) ==
LOC: HO.HMCFM 13:44
PROVIDERS: PCP Family Medicine; Visit Provider Family Medicine
DX: I10 Essential (primary) hypertension (principal); I49.3 Ventricular premature depolarization; E66.9 Obesity, unspecified; Z68.25 Body mass index [BMI] 25.0-25.9, adult